=== PATIENT | female | born 1940 | race Caucasian/White ===

== ENCOUNTER 2019-11-12 09:55 | Emergency (ER) | payer MEDICARE, SELFPAY ==
[2019-11-12 09:57] VITALS: BP 157/76; PULSE 86; RESP 22; TEMP 37; O2SAT 95; BMI 42.3
[2019-11-12 10:00] VITALS: BP 148/76; PULSE 86; RESP 20; TEMP 37; O2SAT 96
--- NOTE | 2019-11-12 10:10 | EKG12_ITS ---
Test Reason : Blood Pressure : / mmHG Vent. Rate : 084 BPM Atrial Rate : 084 BPM P-R Int : 132 ms QRS Dur : 088 ms QT Int : 418 ms P-R-T Axes : 017 -45 043 degrees QTc Int : 493 ms Sinus rhythm with Premature atrial complexes Left anterior fascicular block Prolonged QT Abnormal ECG Confirmed by AUGUSTO PUENTE, ZOHRA ([id number]), content editor ERIC SPANN ([id number]) on 11/14/2019 11:00:25 AM Referred By: DEYANIRA Confirmed By:ZOHRA CASAS MD
--- NOTE | 2019-11-12 10:11 | ED.VIS.GEN ---
History of Present Illness Chief Complaint: GI Bleed Informant: Patient Onset: Days Current Severity: Mild Maximum Severity: Moderate Narrative: Presents via EMS secondary to rectal bleeding. Patient had a colectomy with colostomy placement on November [address] Latif at [facility] secondary to colon cancer. She states she came home 6 days ago. She had some mild bleeding then. She is noted increased bleeding which she assumes is rectal. She states she wears a pad because she has urinary incontinence. She has noted blood to the back portion of the pad. She does report some mild abdominal discomfort. No fever or chills. She had normal colostomy output. Today she felt lightheaded but she describes this as being more consistent with her vertigo. - Past Medical History (1) Vertigo Status: Chronic (2) High cholesterol Status: Chronic (3) Hypertension Status: Chronic (4) Diabetes Status: Chronic Past Medical History Primary Care Physician: Jose Luis Waldrop, CENTER MEDICAL DIRECTOR-C [Primary Care Provider] - Smoking Status: Never smoker Review of Systems General: Denies: Chills, Fever Eyes: Denies: Visual changes - bilaterally ENT: Denies: Bilateral ear pain Cardiovascular: Denies: Chest pain Respiratory: Denies: Dyspnea, Cough Gastrointestinal: Reports: Abdominal pain. Denies: Nausea, Vomiting, Diarrhea Genitourinary: Denies: Dysuria Musculoskeletal: Denies: Extremity Pain Skin: Denies: Rash Neurological: Denies: Headache Hematologic: Denies: Easy bruising, Easy bleeding Allergy: Denies: Uticaria Physical Exam Vital Signs/Narrative: Vital Signs Temp Pulse Resp BP Pulse Ox 11/12/19 10:00 98.6 F 86 20 H 148/76 H 96 11/12/19 09:57 98.6 F 86 22 H 157/76 H 95 Inital Vital Signs reviewed: Yes General: Well nourished, Well developed Head: Normocephalic ENT: Moist mucous membranes Neck: Supple Cardiovascular: Regular rate, Regular rhythm Respiratory: No distress, CTA bilaterally Abdomen: Soft, Nontender, - - Surgical sites healing. No sign of secondary infection. Good output in colostomy bag. Rectal: - - Rectal exam reveals bright red blood on gloved finger. Extremities: Nontender Skin: Normal color Neurological: Alert, Oriented x3 Psychological: Normal affect Diagnostic/Tx/Re-eval Impressions Abdomen/Pelvis CT 11/12/19 10:43 IMPRESSION: In the anorectal operative bed, complex fluid collection may merely represent postsurgical changes such as seroma/hematoma. Developing infectious process cannot be entirely excluded. Appropriate postsurgical appearance of the left lower quadrant colostomy assuming that the surgery was relatively recent. Minimal bilateral pleural effusions. Electronically Signed: Jose Luis Basilio MD at 13:16 EDT Tel , Service support , 11/12/19 10:43 Abdomen/Pelvis WITH Contrast [CT] Stat Laboratory Results 11/12/19 11/12/19 11/12/19 09:35 09:35 09:35 WBC 11.3 H RBC 3.36 L Hgb 9.9 L Hct 31.6 L MCV 94.0 MCH 29.5 MCHC 31.3 L RDW Std Deviation 48.5 H RDW Coeff of Halima 14.4 Plt Count 234 MPV 10.3 Immature Gran % (Auto) 2.100 H Neut % (Auto) 81.1 H Lymph % (Auto) 7.8 L Smith % (Auto) 7.4 Eos % (Auto) 1.2 Baso % (Auto) 0.4 Absolute Neuts (auto) 9.2 H Absolute Lymphs (auto) 0.88 Nucleated RBC % 0 PT 14.5 INR 1.2 APTT 29.2 Sodium 140 Potassium 3.3 L Chloride 101 Carbon Dioxide 31.0 Anion Gap 8 BUN 12 Creatinine 0.54 L Estim Creat Clear Calc 38.97 Est GFR (MDRD) Af Amer 140 Est GFR (MDRD) Non-Af 116 BUN/Creatinine Ratio 22.1 H Glucose 104 Calcium 8.6 - EKG Initial EKG Interpretation: Sinus Rhythm - Sinus at [address] with [address]s. No acute ST change. - Medical Decision Making Patient was given Zofran for nausea while here. Test results are discussed with patient and family at bedside. I spoke with , on-call for Dr. Latif. He was able to look at patient's previous labs and her hemoglobin was 9.9 at time of discharge. At this time he is comfortable with the patient following up in the office tomorrow as scheduled. I will have a copy of her CT made and print out a copy of labs for family to take along. ED Disposition - Plan for ED Patient: Disposition: Home or Assisted Living Diagnosis: Post-op bleeding Instructions: ED Wound Check Post Op Bleeding Additional Instructions: Follow-up with Dr Latif tomorrow as scheduled.
[2019-11-12] MEDS: 0.9% Normal Saline 1,000 ML 150 ML IV (10:15)
[2019-11-12 10:17] LABS: Absolute Lymphocyte Count 0.88 X10^3/uL (0.83-4.51); Absolute Neutrophil Count 9.2 X10^3/uL (2.0-7.7); Basophil# 0.04 X10^3/uL; Basophil% 0.4 % (0-1); Eosinophil# 0.14 X10^3/uL; Eosinophils% 1.2 % (0-5); Hematocrit 31.6 % (37-47); Hemoglobin 9.9 g/dL (12.0-15.0); Lymphocyte # 0.88 X10^3/ul (4.0); Lymphocyte % 7.8 % (19-41); Mean Corp Hgb Conc 31.3 g/dL (32-36); Mean Corpuscular Hgb 29.5 pg (27.0-32.0); Mean Platelet Vol. 10.3 fl (6.2-12.0); Monocyte# 0.83 X10^3/uL; Monocyte% 7.4 % (0-10); NRBC Flagged by Analyzer 0 % (0-5); Neutrophil # 9.16 X10^3/uL (2.7-7.7); Neutrophil % 81.1 % (47-70); Platelet Count 234 K/mm3 (150-450); RBC Distribution Width CV 14.4 % (11.6-14.6); RBC Distribution Width SD 48.5 fl (35.1-43.9); Red Blood Count 3.36 M/mm3 (4.2-5.4); White Blood Count 11.3 K/mm3 (4.4-11.0)
[2019-11-12 10:22] LABS: International Normalized Ratio 1.2; Partial Thromboplast Time 29.2 Seconds (24.1-36.2); Prothrombin Time (Protime)PT. 14.5 SECONDS (11.7-14.9)
[2019-11-12 10:27] LABS: Anion Gap 8 (5-15); BUN 12 mg/dL (7-18); BUN/Creat Ratio 22.1 RATIO (10-20); Calcium,Total 8.6 mg/dL (8.5-10.1); Chloride 101 mmol/L (98-107); Creatinine, Serum 0.54 mg/dL (0.55-1.02); EST Glomerular Filtration Rate 116 mL/min (>60); Est Glom Filt Rate - Afr Amer 140 mL/min (>60); Estimated Creatinine Clearance 38.97 ml/min; Glucose 104 mg/dL (74-106); Potassium 3.3 mmol/L (3.5-5.1); Sodium Level 140 mmol/L (136-145)
--- NOTE | 2019-11-12 10:43 | CT_ITS ---
STUDY: CT ABDOMEN AND PELVIS WITH CONTRAST REASON FOR EXAM: Female, 79 years old. Abdominal pain, GI bleed, recent colectomy/colostomy, colon cancer, rectal bleed RADIATION DOSAGE (If Supplied By Facility): CTDIvol = ( 15.07 ) mGy, DLP = ( 1106.00 ) mGycm. Individualized dose optimization techniques were used for this CT.? TECHNIQUE: Thin slice transaxial CT abdomen and pelvis IV contrast Isovue-370, 100 mL, sagittal and coronal 2-D MPR. COMPARISON: None. FINDINGS: Body wall soft tissues: Left lower quadrant colostomy. There is mild induration in the fat surrounding the colostomy, minimal fluid within the colostomy defect. This would be concordant with recent creation of the colostomy, postsurgical changes. There are no rim-enhancing abscess-like fluid collections. Osseous structures: No acute process. Inferior chest: Minimal bilateral pleural effusions with mild bibasilar atelectasis, lung bases otherwise clear, normal distal esophagus, minimal sliding hiatal hernia, Mild cardiomegaly. Hepatobiliary: No suspicious lesions, normal gallbladder and biliary tree. Pancreas: Mild atrophy. Spleen: Normal. Adrenal glands: Normal. Urogenital: Normal kidneys, collecting systems, ureters, urinary bladder. Some fluid in the vaginal vault, with a few tiny gas bubbles.. Uterus absent. No adnexal mass or suspicious cyst. Pelvic floor and sidewalls and retroperitoneum: No mass or lymphadenopathy. Vasculature: Normal. Stomach: Normal. Small bowel and mesentery: Normal. Appendix: Normal. Large bowel: Large bowel to the colostomy exhibits no acute abnormality. There appears to be resection of the anorectum, and sigmoid colon. In the operative bed there is a small fluid collection presacral, containing a few gas bubbles, the fluid collection measuring approximately 7 cm craniocaudal, 2.8 cm in maximum diameter. Depending on how recent the surgery was, this may merely reflect a postoperative seroma/hematoma. Developing infectious process cannot be entirely excluded. Ascites or free air: None. CT/Abdomen/Pelvis WITH Contrast IMPRESSION: In the anorectal operative bed, complex fluid collection may merely represent postsurgical changes such as seroma/hematoma. Developing infectious process cannot be entirely excluded. Appropriate postsurgical appearance of the left lower quadrant colostomy assuming that the surgery was relatively recent. Minimal bilateral pleural effusions. Electronically Signed: Jose Luis Basilio MD at 13:16 EDT Tel , Service support ,
[2019-11-12 11:00] VITALS: BP 145/87; PULSE 84; RESP 20; TEMP 37; O2SAT 96
[2019-11-12] MEDS: Ondansetron 4 MG/2 ML Vial IV (11:45)
[2019-11-12 12:00] VITALS: BP 146/80; PULSE 83; RESP 19; TEMP 36.8; O2SAT 94
[2019-11-12 12:42] VITALS: PULSE 83; RESP 19; O2SAT 94
[2019-11-12 14:18] VITALS: BP 153/79; PULSE 85; RESP 20; O2SAT 95
== END 2019-11-12 14:33 | disposition home or self-care (01) ==
PROVIDERS: Emergency Provider Emergency Medicine; PCP Nurse Practitioner Family
DX: K62.5 Hemorrhage of anus and rectum (principal); R42 Dizziness and giddiness; R11.0 Nausea; Z90.49 Acquired absence of other specified parts of digestive tract; Z93.3 Colostomy status; I49.1 Atrial premature depolarization; I10 Essential (primary) hypertension; E11.9 Type 2 diabetes mellitus without complications; E78.00 Pure hypercholesterolemia, unspecified; Z85.038 Personal history of other malignant neoplasm of large intestine; Z79.84 Long term (current) use of oral hypoglycemic drugs; Z79.899 Other long term (current) drug therapy
CPT/HCPCS: 74177; 80048; 85025; 85610; 85730; 93005; 96361; 96374; 99285; Q9967; J2405

== ENCOUNTER 2019-12-31 15:40 | Emergency (ER) | payer MEDICARE, OTHER, SELFPAY ==
[2019-12-31 15:42] VITALS: BP 134/75; PULSE 99; RESP 16; TEMP 37; O2SAT 97; BMI 37.0
--- NOTE | 2019-12-31 16:05 | ED.DCSUM_ITS ---
- ER Visit Summary Date of Service: 12/31/19 Chief Complaint: Bleeding near abdominal incision History of Present Illness: The patient is a 79 F presenting with bleeding abdominal incision. Patient had colostomy placement and partial colectomy in October at [facility] for colon cancer. She states 2 to 3 weeks later the incision became infected. She was treated with oral antibiotics. She has been doing well since that time. She states yesterday she noticed what she thought was a bruise around the incision. Today this began bleeding. Denies fever or chills. Denies abdominal pain. She has normal output from her ostomy. Denies other complaints. Physical Examination: Vitals are stable. Patient is afebrile. Alert no acute distress. HEENT exam is unremarkable. Neck is supple. Lungs are clear and equal bilaterally. Heart is regular rate and rhythm. Abdomen is soft nontender nondistended. Colostomy intact. Open bleeding 1 cm wound superior aspect of incision inferior to umbilicus Extremities are unremarkable. Skin is warm and dry. No focal neurologic deficit. Remainder of exam is unremarkable. Emergency Department Course and Treatment: CBC shows white count 12.3, hemoglobin 10.3. Chemistries show glucose 110. CT abdomen pelvis shows irregular low-attenuation collection associated with the midline pelvic scar may represent seroma versus abscess as clinically indicated. On exam wound is open and draining. Wound was irrigated and dressed. She was given clindamycin. Wound culture was sent. Discussed with surgery on-call for Dr. Latif. Patient will follow-up closely in the office. Advised to return to the ED for worsening complaints. Disposition: Discharge home Impression: Postop abdominal wall abscess, draining This note was generated with [employer] dictation software. It may contain incorrect words, spelling, and punctuation that were not noted in review of the chart prior to signing ED Disposition - Plan for ED Patient: Instructions: ED Wound Infection after surgery Prescriptions: Clindamycin [Cleocin] 300 mg PO 4X/DAY #80 cap Prescription Printed Referrals: Jose Luis Waldrop, ABIOLA-C [Primary Care Provider] -
[2019-12-31 16:33] LABS: Absolute Lymphocyte Count 1.22 X10^3/uL (0.83-4.51); Absolute Neutrophil Count 9.5 X10^3/uL (2.0-7.7); Basophil# 0.04 X10^3/uL; Basophil% 0.3 % (0-1); Eosinophil# 0.22 X10^3/uL; Eosinophils% 1.8 % (0-5); Hematocrit 33.6 % (37-47); Hemoglobin 10.3 g/dL (12.0-15.0); Lymphocyte # 1.22 X10^3/ul (4.0); Lymphocyte % 9.9 % (19-41); Mean Corp Hgb Conc 30.7 g/dL (32-36); Mean Corpuscular Hgb 27.6 pg (27.0-32.0); Mean Corpuscular Volume 90.1 fL (81-99); Mean Platelet Vol. 9.9 fl (6.2-12.0); Monocyte# 1.26 X10^3/uL; Monocyte% 10.2 % (0-10); NRBC Flagged by Analyzer 0 % (0-5); Neutrophil # 9.52 X10^3/uL (2.7-7.7); Neutrophil % 77.4 % (47-70); Platelet Count 307 K/mm3 (150-450); RBC Distribution Width CV 14.6 % (11.6-14.6); Red Blood Count 3.73 M/mm3 (4.2-5.4); White Blood Count 12.3 K/mm3 (4.4-11.0)
--- NOTE | 2019-12-31 16:33 | CT_ITS ---
STUDY: CT ABDOMEN AND PELVIS WITH CONTRAST REASON FOR EXAM: Female, 79 years old. POST-OP INFECTION-COLON SURGERY ,PT HAS BLEEDING NEAR INCISION SITE RADIATION DOSAGE (If Supplied By Facility): CTDIvol = ( 12.56 ) mGy, DLP = ( 1174.77 ) mGycm TECHNIQUE: Transaxial images were obtained from the dome of the diaphragm to the symphysis pubis without oral contrast. Oral and amp; IV Gastrografin and amp; 100mL Isovue-370 was administered. Sagittal and coronal images were reconstructed. Individualized dose optimization techniques were used for this CT. COMPARISON: None. FINDINGS: The visualized lung bases are unremarkable. The visualized portions of the heart are within normal limits. Normal liver. Normal gallbladder and extrahepatic biliary system. Normal spleen. There are pancreatic calcifications in the distribution of the ducts consistent with chronic pancreatitis. Normal bilateral adrenal glands. Normal right kidney. Normal left kidney. There is left anterior abdominal wall colostomy. At the lower pelvis there is a low-attenuation focus associated with the scar measuring 3.8 x 3.6 cm. Normal visualized stomach. Normal small intestine. There are multiple colonic diverticula consistent with diverticulosis. The appendix is visualized and appears normal. Normal abdominal aorta. Normal inferior vena cava. Normal retroperitoneum. Normal urinary bladder. There is absence of the uterus consistent with a prior hysterectomy. Normal abdominal wall. Normal osseous structures. CT/Abdomen/Pelvis WITH Contrast IMPRESSION: Irregular low-attenuation collection associated with the midline pelvic scar may represent seroma versus abscess as clinically indicated. Electronically Signed: Wes Stevenson, at 19:07 EDT Tel , Service support ,
[2019-12-31 16:47] LABS: Anion Gap 4 (5-15); BUN 18 mg/dL (7-18); Calcium,Total 9.2 mg/dL (8.5-10.1); Chloride 105 mmol/L (98-107); Creatinine, Serum 0.82 mg/dL (0.55-1.02); EST Glomerular Filtration Rate 72 mL/min (>60); Est Glom Filt Rate - Afr Amer 87 mL/min (>60); Estimated Creatinine Clearance 47.53 ml/min; Glucose 110 mg/dL (74-106); Sodium Level 138 mmol/L (136-145)
[2019-12-31 17:41] VITALS: BP 102/74; PULSE 79; RESP 18; O2SAT 100
[2019-12-31 20:25] VITALS: BP 110/47; PULSE 78; RESP 15; O2SAT 97
--- NOTE | 2019-12-31 20:25 | ED.DEP ---
ED Disposition - Plan for ED Patient: Instructions: ED Wound Infection after surgery Prescriptions: Clindamycin [Cleocin] 300 mg PO 4X/DAY #80 cap Prescription Printed Referrals: Jose Luis Waldrop, SERVICE DESK TEAM LEAD-C [Primary Care Provider] -
[2019-12-31] MEDS: Clindamycin HCl 150 MG Capsule 450 MG PO (20:38)
== END 2019-12-31 20:52 | disposition home or self-care (01) ==
LOC: ED 16:57
PROVIDERS: Emergency Provider Emergency Medicine; PCP Nurse Practitioner Family
DX: T81.41XA Infection following a procedure, superficial incisional surgical site, initial encounter (principal); L02.211 Cutaneous abscess of abdominal wall; Z85.038 Personal history of other malignant neoplasm of large intestine; Z93.3 Colostomy status; I10 Essential (primary) hypertension; E11.9 Type 2 diabetes mellitus without complications; E78.00 Pure hypercholesterolemia, unspecified; Z90.49 Acquired absence of other specified parts of digestive tract; Z79.84 Long term (current) use of oral hypoglycemic drugs; Z79.899 Other long term (current) drug therapy
CPT/HCPCS: 74177; 80048; 85025; 87070; 87077; 87205; 99284; Q9967; A4216

== ENCOUNTER → 2020-02-05 08:42 | Outpatient (CLI) | payer MEDICARE, OTHER, SELFPAY ==
--- NOTE | 2020-02-05 08:44 | US_ITS ---
STUDY: ULTRASOUND OF THE FEMALE PELVIS - COMPLETE REASON FOR EXAM: Female, 79 years old. Vaginal mass LMP: The patient is postmenopausal. TECHNIQUE: Transabdominal and Transvaginal TECHNICAL QUALITY: Adequate. COMPARISON: None. FINDINGS: The patient is status post hysterectomy. The right ovary is non-visualized. The left ovary is non-visualized. There is no fluid in the cul-de-sac. The pre void volume of the bladder was 125 ml. Polycystic ovary disease: No. US/Transvaginal Non- IMPRESSION: Status post hysterectomy. The ovaries were not visualized. No masses seen. Electronically Signed: Tru Anaya, at 12:33 EDT , Service support ,
== END ==
PROVIDERS: PCP Student in an Organized Health Care Education/Training Program; Referring Provider Student in an Organized Health Care Education/Training Program; Visit Provider Student in an Organized Health Care Education/Training Program
DX: N89.8 Other specified noninflammatory disorders of vagina (principal)
CPT/HCPCS: 76830

== ENCOUNTER → 2020-02-09 14:11 | Outpatient (CLI) | payer MEDICARE, OTHER, SELFPAY ==
--- NOTE | 2020-02-09 14:18 | CT_ITS ---
STUDY: CT ABDOMEN AND PELVIS WITH CONTRAST REASON FOR EXAM: Female, 79 years old. COLON CANCER WITH COLECTOMY. PRIOR HYSTERECTOMY RADIATION DOSAGE (If Supplied By Facility): CTDIvol = ( 14.63 ) mGy, DLP = ( 1518.80 ) mGycm TECHNIQUE: Transaxial images were obtained from the dome of the diaphragm to the symphysis pubis without oral contrast. 100mL Isovue-370 was administered. Sagittal and coronal images were reconstructed. Individualized dose optimization techniques were used for this CT. COMPARISON: Comparison is made with prior study dated 12/31/2019. FINDINGS: Minimal increased markings at the lung bases suggestive of minimal atelectasis and/or minimal basilar scarring. The visualized portions of the heart are within normal limits. There is decreased attenuation of the liver consistent with steatosis. The gallbladder is distended. There is mild splenomegaly. Normal pancreas. Normal bilateral adrenal glands. Normal right kidney. Normal left kidney. There is a small hiatal hernia. Normal small intestine. A colostomy is seen in the left anterior mid abdomen just lateral to the umbilicus. Stable soft tissue density in the region of the rectum most likely postsurgical in nature. There is non-visualization of the appendix. There is scattered atherosclerotic calcification of the abdominal aorta, without a demonstrated aneurysm. Normal inferior vena cava. Normal retroperitoneum. Normal urinary bladder. There is absence of the uterus consistent with a prior hysterectomy. There is a small umbilical hernia containing fat. There are degenerative changes of the visualized lumbar spine. CT/Abdomen/Pelvis W IV Cont ONLY IMPRESSION: Stable examination. Electronically Signed: Tru Anaya, at 14:58 EDT , Service support ,
--- NOTE | 2020-02-09 14:19 | CT_ITS ---
STUDY: CT CHEST WITH CONTRAST REASON FOR EXAM: Female, 79 years old. Rectal cancer WITH COLECTOMY. RADIATION DOSAGE (If Supplied By Facility): CTDIvol = ( 14.63 ) mGy, DLP = ( 1518.80 ) mGycm TECHNIQUE: Transaxial imaging was performed following intravenous administration of 100mL Isovue-370. Multiplanar coronal and sagittal images were reformatted. Individualized dose optimization techniques were used for this CT. COMPARISON: None. FINDINGS: Minimal increasing markings at the lung bases suggestive of mild basilar scarring. There is no demonstrated pleural abnormality. Normal heart and pericardium. Normal mediastinum. Normal hilar regions. Normal enhanced pulmonary arteries. There is atherosclerotic calcification of the aortic arch. There are multi-level degenerative changes of the thoracic spine. Small hiatal hernia. CT/Chest WITH Contrast IMPRESSION: No acute abnormality is seen. Electronically Signed: Tru Anaya, at 14:59 EDT , Service support ,
== END ==
PROVIDERS: PCP Student in an Organized Health Care Education/Training Program; Referring Provider Student in an Organized Health Care Education/Training Program; Visit Provider Student in an Organized Health Care Education/Training Program
DX: C20 Malignant neoplasm of rectum (principal); C18.9 Malignant neoplasm of colon, unspecified
CPT/HCPCS: 71260; 74177; Q9967

== ENCOUNTER 2020-02-13 13:10 | Day surgery (SDC) | payer MEDICARE, OTHER, SELFPAY ==
--- NOTE | 2020-02-12 11:03 | PCM.HP.BLA ---
History and Physical Date of Admission: 02/13/20 HISTORY AND PHYSICAL ? [place] 1940 ? ? REFERRING PHYSICIAN: Juan Alberto Wetzel DO ? CHIEF COMPLAINT: No chief complaint on file. ? HPI: The patient is a 79 year old female presents with metastatic rectal cancer and requires portacath for continued IV chemotherapy. She denies previous placement of central line access. She denies history of clavicular/rib/vertebral fractures. She denies previous deep venous thromboses. She denies bleeding tendencies. She denies taking any blood thinners. She denies fevers. ? ? PAST MEDICAL HISTORY Diagnosis Date ? Gout ? ? Hypercholesterolemia ? ? Hypertension ? ? Noninsulin dependent diabetes mellitus ? ? Vertigo ? ? PAST SURGICAL HISTORY Procedure Laterality Date ? BREAST BIOPSY ? ? ? left ? COLONOSCOPY ? 09/29/2019 ? EXCISION OF LINGUAL TONSIL ? ? ? ingrown toenails ? 2 ? PAST SURGICAL HISTORY OF ? ? ? Melanoma removed from back ? PAST SURGICAL HISTORY OF ? 01/30/2020 ? Vaginal mass biopsy ? VAGINAL HYSTERECTOMY ? Current Outpatient Medications Medication Sig ? potassium chloride ER (K-DUR, KLOR-CON) 20 mEq tablet Take 1 tablet by mouth twice daily. ? ascorbic acid, vitamin C, (VITAMIN C) 500 mg tablet Take 500 mg by mouth two times a week. ? ferrous sulfate (IRON) 325 mg (65 mg iron) tablet Take 325 mg by mouth two times a week. ? lisinopril (ZESTRIL, PRINIVIL) 10 mg tablet Take 10 mg by mouth once daily. ? meclizine (ANTIVERT) 25 mg tab Take 25 mg by mouth three times daily as needed. ? rosuvastatin (CRESTOR) 5 mg tablet Take 5 mg by mouth once daily. ? oxybutynin (DITROPAN) 5 mg tablet Take 5 mg by mouth once daily. ? HYDROcodone-acetaminophen (NORCO) 5-325 mg per tablet Take 1 tablet by mouth every 6 hours as needed. ? alendronate (FOSAMAX) 70 mg tablet Take 70 mg by mouth one time a week. In AM with cup of water on empty stomach. Nothing else by mouth and stay upright for 30 min. ? ? ALLERGIES: Patient has no known allergies. ? PERSONAL HISTORY: Social History ? Tobacco Use ? Smoking status: Never Smoker ? Smokeless tobacco: Never Used Substance Use Topics ? Alcohol use: Yes ? ? Comment: rarely ? Drug use: Not on file ? FAMILY HISTORY Problem Relation Age of Onset ? Allergies Son ? ? Asthma Son ? ? Breast Cancer Sister ? ? Cervical Cancer Mother ? ? Diabetes Mother ? ? Hypertension Mother ? ? Osteoporosis Mother ? ? Coronary Artery Disease Father ? ? Heart Father ? ? Ischemic Heart Disease Father ? ? of heart attack in 50's ? Diabetes Sister ? ? Diabetes Sister ? ? Headache Sister ? ? Hypertension Sister ? ? Lipids Sister ? ? Stroke Sister ? ? ? REVIEW OF SYSTEMS: General - denies fevers, has had weight loss - was over 250# Cardiovascular - denies chest pain, denies history of VT Pulmonary - denies shortness of breath, denies coughing up blood Gastrointestinal - has colostomy in place Neurological - denies seizures, has some weakness of legs, denies chronic headaches Genitourinary - denies burning with urination, denies blood in urine Hematological - denies spontaneous/prolonged bleeding Skin - had wound infection of abdominal surgery Musculoskeletal - using walker to assist with ambulation, has bilateral knee arthritis Endocrine - denies diabetes, no thyroid problems Psychological ? denies hallucinations ? PHYSICAL EXAMINATION: General: The patient is 79 year old female, well nourished, well hydrated in no acute distress. The patient is oriented to time, place, and person. VITALS: Pulse 80, temperature 36.3 ?C (97.4 ?F), temperature source Temporal Artery, SpO2 96 %. Ht: 5'4 Wt: 215# Head ? Normocephalic. EOM intact with sclera clear and no icterus noted. Mouth with mucus membranes moist. Neck - supple with no jugular venous distention noted. Trachea is midline. Lungs ? clear to auscultation. Normal breath sounds. No rales/rhonchi/wheezing noted. No labored breathing noted, such as retractions. No cough heard. Heart ? normal S1 and S2 auscultated. No rubs/clicks/murmurs noted. Regular rate. Abdomen ? soft and benign. Normal bowel sounds. No abdominal bruits noted. Functioning colostomy in left side of abdomen. Extremities ? no calf tenderness noted. No pitting edema noted. Skin ? normal skin integrity. Neurological ? sitting in wheelchair, no focal deficits noted. Psych ? calm and appropriate ? ? IMPRESSION: metastatic rectal cancer, need for IV access for chemotherapy ? PLAN: I have discussed the above with the patient and her granddaughter who is here with her. I have offered placement of VAD with subcutaneous port. I have explained the procedure to the patient. I have counseled the patient as to the risks of the procedure, including but not limited to: infection, bleeding, injury to any blood vessels/nerves, scar tissue, injury to the lungs such as hemothorax and/or pneumothorax, thromboses of the blood vessels, non functioning of the port, line sepsis, wound infections, complications of anesthesia, etc. ? the patient understands. She prefers left sided placement of port. ? The patient was offered a surgery/procedure. The provider and patient have discussed in detail the risk of exposure to and/or potential harm posed by the COVID-19 virus with having a surgery/procedure at this time versus the risk of? delaying the surgery/procedure. It is not possible to know either the risk of delaying the surgery or procedure or chance of getting an infection with perfect accuracy, but a joint decision was made between the patient and the provider ?to proceed at this time with the scheduled surgery/procedure. ? The patient wishes to proceed. ?I have answered all questions to the patient?s satisfaction and the patient has no further questions. . Diagnoses: (Z45.2) Exhausted vascular access (primary encounter diagnosis) (C20) Malignant neoplasm of rectum (HCC) Return to Clinic: The patient is instructed to follow-up with me after the procedure as needed. ? Brittany Gaines MD
[2020-02-13 13:30] VITALS: BP 153/72; PULSE 67; RESP 16; TEMP 36.6; O2SAT 98; BMI 36.3
[2020-02-13] MEDS: Lactated Ringers 1,000 ML 75 ML IV (13:59)
[2020-02-13] MEDS: Cefazolin 2 GM in 0.9% Normal Saline 100 ML IV (15:37)
--- NOTE | 2020-02-13 15:54 | DCINST_ITS ---
Discharge Diet: No Restrictions Discharge Activity: Return to Normal Activity, May not drive while taking narcotic pain medications. Call your doctor if your incision/area has: Continuous Slow Oozing, Foul Smelling Discharge Call your doctor if you observe: Fever of 101 or Higher Allergies/Adverse Reactions: Allergies No Known Allergies Allergy (Verified 02/12/20 11:03) Medications to take at Discharge Alendronate Sodium [Fosamax] 70 mg PO FR 11/12/19 Allopurinol [Zyloprim] 200 mg PO DAILY 11/12/19 Lisinopril [Zestril] 20 mg PO DAILY 11/12/19 Meclizine HCl [Antivert] 12.5 mg PO BID PRN PRN 11/12/19 Rosuvastatin Calcium [Crestor] 5 mg PO DAILY 11/12/19 Ascorbic Acid [Vitamin C] 500 mg PO MOTH 02/12/20 Ferrous Gluconate [Iron] 65 mg PO MOTH 02/12/20 Hydrocodone Bitart/Apap 5-325 [[place] 5MG-325MG] 1 tab PO Q6H PRN PRN 02/12/20 Oxybutynin [Ditropan] 5 mg PO DAILY 02/12/20 Potassium Chloride [Klor-Con] 20 meq PO BID 02/12/20 Primary Care Physician: Steve Devries DO [Primary Care Provider] - Test Results: Test results from this visit will be discussed in further detail at your follow- up appointment, if applicable. Please Follow Up With: Brittany Gaines MD - call please call if any questions/concerns When: can follow up in oncology clinic, follow up with me prn
[2020-02-13 16:21] LABS: Bedside Glucose 100 mg/dL (70-110)
--- NOTE | 2020-02-13 16:48 | OP.PCM_ITS ---
Report of Operation Date of Procedure: 02/13/20 Pre-Operative Diagnosis: metastatic cancer, need for IV access for chemotherapy Post-Operative Diagnosis: same Surgery/Procedure Performed:: Placement of permanent indwelling tunneled catheter in left subclavian vein with subcutaneous port Description of Surgical Findings:: normal left subclavian vein anatomy to SVC Type of Anesthesia:: Local MAC Anesthesiologist: Lisbet Madrigal Specimen's removed: none Estimated Blood Loss (mL): < 10 ml Fluids Replaced: 800 ml RL Description of Procedure: After informed consent was given, the patient was brought to the Operating Room. Appropriate time out protocol was followed. The patient was then placed in the supine position. The patient was then given IV conscious sedation for anesthesia. The patient?s upper chest and neck were then prepped with a surgical skin preparation and sterile surgical drapes were placed. After proper landmarks were ascertained, the skin at the upper left chest area was then infiltrated with 1% xylocaine with epinephrine. A needle trocar was then inserted into the left subclavian vein and there was good aspiration of venous blood. A wire was then threaded into the needle trocar and this was visualized under fluoroscopy to ensure that the wire was in the left subclavian vein. Once this was done, then the needle trocar was removed. A small skin marquis was made with an 11 blade knife at the wire entrance site. The dilator with the introducer sheath attached was then placed over the wire into the left subclavian vein via the Seldinger technique and this was visualized under fluoroscopy. The dilator and sheath were in proper position as visualized by fl uoroscopy in real time. The wire and dilator were then removed. The catheter was then threaded into the introducer sheath and was positioned with its tip at the junction of the superior vena cava and the right atrium as visualized under fluoroscopy in real time. I personally reviewed all of the above fluoroscopic images and noted that the positions of the wire and catheter were correct so that the next step could be conducted. The catheter was flushed with a heparin saline mixture prior to placement. A subcutaneous pocket was then created caudad to the catheter insertion site. A transverse skin incision was made after the skin and subcutaneous tissues were infiltrated with local anesthetic. Blunt dissection was then used to create a space large enough for placement of the subcutaneous port. Hemostasis was carefully controlled with electrocautery. The port was sutured to the subcutaneous fascia using vicryl suture at three sites. The catheter was then tunneled into the subcutaneous pocket. The excess catheter was transected. The catheter was then attached to the subcutaneous port using research center director?s guidelines. The port was then placed in the subcutaneous pocket and the sutures were ligated. The subdermal incisional sites were reapproximated with interrupted vicryl suture. The skin was reapproximated with monocryl suture in a subcuticular fashion. Cavilon and carrington ristrips were used for reinforcement of the skin closure and a sterile opsite dressing was applied. Sponge, needle, and instrument count were verified and correct at the time of skin closure. The patient was brought to the Recovery Room in stable condition - Complications none noted - Admit VTE Documentation VTE Present on Admission: Yes VTE Mechan Device Prophylaxis: SCD's
[2020-02-13 16:56] VITALS: BP 119/67; BP 153/72; PULSE 75; RESP 16; TEMP 36.3; O2SAT 97
[2020-02-13 17:00] VITALS: BP 130/78; BP 153/72; PULSE 80; RESP 16; O2SAT 97
--- NOTE | 2020-02-13 17:00 | RAD_ITS ---
STUDY: X-RAY CHEST REASON FOR EXAM: Female, 79 years old. post op port insertion TECHNIQUE: Single AP portable view of the chest. COMPARISON: None. FINDINGS: Left subclavian chest port with tip of the catheter overlying the superior vena cava and no pneumothorax. The lungs are clear and expanded. Slightly elevated right hemidiaphragm. Normal size heart. Normal mediastinum and mani. Normal visualized pulmonary arteries. Normal visualized aortic arch and descending thoracic aorta. Normal visualized thoracic spine. Normal visualized ribs, clavicles, and shoulders. There is no demonstrated abnormality of the visualized soft tissue structures of the upper abdomen. RAD/CXR for Line Placement IMPRESSION: Left subclavian chest port with tip of the catheter overlying the superior vena cava and no pneumothorax. Electronically Signed: Jose Luis Casas MD at 17:31 EDT Tel , Service support ,
[2020-02-13 17:05] VITALS: BP 141/94; BP 153/72; PULSE 76; RESP 16; O2SAT 100
[2020-02-13 17:11] VITALS: BP 140/71; BP 153/72; PULSE 70; RESP 16; TEMP 36.7; O2SAT 99
[2020-02-13 17:45] VITALS: BP 148/63; BP 153/72; PULSE 81; RESP 16; TEMP 36.8; O2SAT 99
== END 2020-02-13 17:50 | disposition home or self-care (01) ==
LOC: SDC 13:11 → AC 13:11
PROVIDERS: PCP Student in an Organized Health Care Education/Training Program; Referring Provider Surgery; Visit Provider Surgery
PROC: (CPT 36561; principal; 2020-02-13 14:45)
DX: Z45.2 Encounter for adjustment and management of vascular access device (principal); C20 Malignant neoplasm of rectum; I10 Essential (primary) hypertension; M10.9 Gout, unspecified; E11.9 Type 2 diabetes mellitus without complications; E78.00 Pure hypercholesterolemia, unspecified; Z78.0 Asymptomatic menopausal state; Z85.820 Personal history of malignant melanoma of skin; Z85.038 Personal history of other malignant neoplasm of large intestine; Z79.899 Other long term (current) drug therapy
CPT/HCPCS: 00532; 36561; 71045; 77001; 82962; J7120; C1788

== ENCOUNTER 2020-03-22 11:02 | Inpatient (IN) | payer MEDICARE, OTHER, SELFPAY ==
[2020-03-22] VITALS (9 sets, daily range): BP systolic 112–132; BP diastolic 52–60; PULSE 73–85; RESP 16–22; TEMP 36.6–37.2; O2SAT 89–98; BMI 38.0; BMI 37.3
--- NOTE | 2020-03-22 11:53 | CT_ITS ---
STUDY: CT ABDOMEN AND PELVIS WITHOUT CONTRAST REASON FOR EXAM: Female, 79 years old. R/O BOWEL OBSTRUCTION, ABD PAIN RADIATION DOSAGE (If Supplied By Facility): CTDIvol = ( 12.53 ) mGy, DLP = ( 1006.33 ) mGycm TECHNIQUE: Transaxial images were obtained from the dome of the diaphragm to the symphysis pubis without oral contrast, and without intravenous contrast. Sagittal and coronal images were reconstructed. Individualized dose optimization techniques were used for this CT. COMPARISON: Comparison is made with prior study dated 02/09/2020. FINDINGS: There is a new small right pleural effusion with right basilar infiltrate as compared to prior study. Elevation of the right hemidiaphragm. A portacatheter is seen at the junction of the superior vena cava and right atrium. The visualized portions of the heart are within normal limits. Normal liver. Mildly distended gallbladder. There is moderate splenomegaly. Normal pancreas. Normal bilateral adrenal glands. Mild right hydronephrosis and proximal right hydroureter. Moderate degree of engorgement of the left kidney with the left perinephric stranding and thickening of the anterior pararenal space. Mild to moderate degree of the left hydronephrosis and left hydroureter. No visualized opaque stone is seen throughout the course of the ureter. Normal visualized stomach. There are dilated loops of the small intestine with a non-distended colon consistent with a small bowel obstruction. A colostomy is seen in the anterior left lower quadrant. Stable circumferential thickening of the rectum with increased markings in the surrounding pelvic fat as well as prominence of the presacral soft tissues. This is unchanged. There is non-visualization of the appendix. There is diffuse atherosclerotic calcification of the abdominal aorta, without a demonstrated aneurysm. Normal inferior vena cava. There is borderline retroperitoneal lymphadenopathy with enlarged nodes no greater than 10mm in the short axis diameter. Normal urinary bladder. There is absence of the uterus consistent with a prior hysterectomy. There is a small umbilical hernia containing fat. Normal osseous structures. CT/Abdomen/Pelvis without Cont IMPRESSION: Findings indicative of distal small bowel obstruction. The left kidney is engorged. There is evidence of perinephric stranding with mild to moderate degree of left hydronephrosis and hydroureter. No obstructive calculus is seen. Stable circumferential thickening of the rectum as well as increased presacral soft tissue densities. Electronically Signed: Tru Anaya, at 13:18 EST , Service support ,
--- NOTE | 2020-03-22 11:55 | ED.DCSUM_ITS ---
- ER Visit Summary Date of Service: 03/22/20 Chief Complaint: Abdominal pain History of Present Illness: The patient is a 79 F history of prior colon cancer with partial resection and stoma. Now has rectal and liver metastases. Prior hysterectomy. Patient states since Wednesday last 3 days she has had abdominal pain and today had nausea vomiting. She had limited output through her stoma. Denies any melena. No fever. No dysuria. Pain is diffuse over her entire abdomen. Physical Examination: Alert female vital signs stable. H EENT exam unremarkable. Neck nontender. Lungs clear to auscultation. Heart regular rate and rhythm no murmur. Abdomen is distended diffusely tender. There is limited brown stool output in her colostomy bag. Abdomen is tympanic with decreased bowel sounds. Patient is moving all 4 extremities. Nontender. Neurologically she is awake alert with no focal motor deficits. Test Results: CBC white count 11.2 hemoglobin 12. No bands. Chemistries unremarkable except for BUN 36 creatinine 2.2 consistent with renal insuff iciency and also probably some secondary dehydration. Liver enzymes slightly elevated lipase normal. UA pending. Chest x-ray shows atelectasis but no acute process. CAT scan of the abdomen pelvis shows a distal bowel obstruction. There is also a left engorged kidney with hydroureter and hydronephrosis without any signs of stone. And rectal thickening. CAT scan is consistent with her exam showing no bowel obstruction. Emergency Department Course and Treatment: Patient with abdominal pain and has had prior partial colon resection hysterectomy. History of colon CA with mets. Concern for bowel obstruction. IV fluids, IV nausea meds. She currently does not waiting for pain. CAT scan labs. She will need admitted. Treatment Plan: Morphine and Zofran. She is receiving IV fluids. I spoke to Dr. Brittany Gaines of general surgery she is willing to be consult on the patient. I have the hospitalist on page to admit the patient for small bowel obstruction. Disposition: Admission Impression: Acute abdominal pain Acute bowel obstruction Acute kidney injury with a creatinine of 2.2. History of colon CA with liver mets. This note was generated with [employer] dictation software. It may contain incorrect words, spelling, and punctuation that were not noted in review of the chart prior to signing ED Disposition - Plan for ED Patient: Referrals: Steve Devries DO [Primary Care Provider] -
[2020-03-22] MEDS: 0.9% Normal Saline 1,000 ML 125 ML IV ×2 (12:02→16:36)
[2020-03-22] MEDS: Ondansetron 4 MG/2 ML Vial IV (12:02)
[2020-03-22 12:15] LABS: Absolute Lymphocyte Count 0.29 X10^3/uL (0.83-4.51); Absolute Neutrophil Count 9.3 X10^3/uL (2.0-7.7); Basophil# 0.03 X10^3/uL; Basophil% 0.3 % (0-1); Eosinophil# 0.04 X10^3/uL; Eosinophils% 0.4 % (0-5); Hematocrit 38.2 % (37-47); Hemoglobin 12.4 g/dL (12.0-15.0); Lymphocyte # 0.29 X10^3/ul (4.0); Lymphocyte % 2.6 % (19-41); Mean Corp Hgb Conc 32.5 g/dL (32-36); Mean Corpuscular Hgb 28.1 pg (27.0-32.0); Mean Corpuscular Volume 86.4 fL (81-99); Mean Platelet Vol. 10.5 fl (6.2-12.0); Monocyte# 1.49 X10^3/uL; Monocyte% 13.3 % (0-10); NRBC Flagged by Analyzer 0 % (0-5); Neutrophil # 9.31 X10^3/uL (2.7-7.7); POSITIVE DIFFERENTIAL YES; Platelet Count 195 K/mm3 (150-450); RBC Distribution Width CV 15.2 % (11.6-14.6); RBC Distribution Width SD 47.9 fl (35.1-43.9); Red Blood Count 4.42 M/mm3 (4.2-5.4); White Blood Count 11.2 K/mm3 (4.4-11.0)
[2020-03-22 12:21] LABS: Differential Indicated SCAN CRITERIA MET
[2020-03-22 12:27] LABS: AST(SGOT) 6 U/L (15-37); Alanine Aminotransfer ALT/SGPT 10 U/L (13-56); Albumin, Serum 3.1 g/dL (3.2-5.0); Alkaline Phosphatase 71 U/L (45-117); Anion Gap 5 (5-15); BUN 36 mg/dL (7-18); BUN/Creat Ratio 16.4 RATIO (10-20); Bilirubin, Direct 0.76 mg/dL (0.00-0.30); Chloride 106 mmol/L (98-107); EST Glomerular Filtration Rate 23 mL/min (>60); Est Glom Filt Rate - Afr Amer 28 mL/min (>60); Estimated Creatinine Clearance 18.49 ml/min; Globulin 3.3 g/dL (2.2-4.2); Glucose 142 mg/dL (74-106); Lipase 39 U/L (73-393); Potassium 4.4 mmol/L (3.5-5.1); Protein, Total 6.4 g/dL (6.4-8.2); Sodium Level 141 mmol/L (136-145)
[2020-03-22] MEDS: Morphine 4 MG/ML Syringe IV ×3 (12:35→22:07)
--- NOTE | 2020-03-22 12:52 | RAD_ITS ---
STUDY: X-RAY CHEST REASON FOR EXAM: Female, 79 years old. ABD PAIN SINCE WEDS. PT HAS STOMA, RECENTLY BEGAN RADIATION FOR RECTAL, LIVER CANCER TECHNIQUE: Single AP portable view of the chest. COMPARISON: Comparison is made with prior study dated 02/13/2020. FINDINGS: A right-sided portacatheter is seen with the tip at the junction of the superior vena cava and right atrium. Elevation of the right hemidiaphragm with mild increased markings at the right lung base suggestive of atelectasis. There is blunting of the right costophrenic angle. Normal size heart. Normal mediastinum and mani. Normal visualized pulmonary arteries. There is atherosclerotic tortuosity of the aortic arch and descending thoracic aorta. There are degenerative changes of the visualized thoracic spine. Normal visualized ribs, clavicles, and shoulders. There is no demonstrated abnormality of the visualized soft tissue structures of the upper abdomen. RAD/Chest 1 View (Portable) IMPRESSION: Mild increased markings at the right lung base with blunting of the right costophrenic angle suggestive of atelectasis. Electronically Signed: Tru Anaya, at 13:11 EST , Service support ,
[2020-03-22 13:47] LABS: Platelet Estimate ADEQUATE (ADEQ); Red Cell Morphology NORM C+C NORMAL (NORM C&C)
--- NOTE | 2020-03-22 14:03 | HP.PCM_ITS ---
Problem List (1) SBO (small bowel obstruction) Status: Acute (2) Diabetes Status: Chronic Qualifiers: Diabetes mellitus type: type 2 Diabetes mellitus fpc insulin use: without terminal makeup operator use Diabetes mellitus complication status: without complication Qualified Code(s): E11.9 - Type 2 diabetes mellitus without complications (3) High cholesterol Status: Chronic (4) Hypertension Status: Chronic (5) Vertigo Status: Chronic (6) STORMY (acute kidney injury) Status: Acute (7) Hydronephrosis Status: Acute History of Present Illness Date of Admission: 03/22/20 Chief Complaint: Abdominal pain The patient is a 79 year old F with a history of colon cancer and some type of abdominal surgery with her colon cancer which she has a colostomy. Presents with a 2-day history of abdominal pain. Abdominal pain is steadily gotten worse. Not having any nausea or vomiting but has noted decreased output from her colostomy. Patient has been able to eat some but much diminished from previous. Patient has never had a bowel obstruction before. In the emergency room CAT scan confirmed a bowel obstruction but also noted that her left kidney was engorged with perinephric stranding. [] Past Medical History Past Medical History (Chronic Problems): Chronic Problems (Last Updated 03/22/20 @ 14:[address] Júnior Felder DO) Vertigo (Chronic) High cholesterol (Chronic) Hypertension (Chronic) Diabetes (Chronic) Medical History: Medical History (Last Updated 03/22/20 @ 14:[address] Júnior Felder DO) Colon cancer C18.9 Vertigo R42 Allergies No Known Allergies Allergy (Verified 03/22/20 11:49) Home Medications: Ambulatory Orders Medication Instructions Recorded Alendronate Sodium [Fosamax] 70 mg PO FR 11/12/19 Allopurinol [Zyloprim] 100 mg PO DAILY 11/12/19 Lisinopril [Zestril] 20 mg PO DAILY 11/12/19 Meclizine HCl [Antivert] 12.5 mg PO BID PRN PRN 11/12/19 Rosuvastatin Calcium [Crestor] 5 mg PO DAILY 11/12/19 Ascorbic Acid [Vitamin C] 500 mg PO MOTH 02/12/20 Ferrous Gluconate [Iron] 65 mg PO MOTH 02/12/20 Hydrocodone Bitart/Apap 5-325 1 tab PO Q6H PRN PRN 02/12/20 [[place] 5MG-325MG] Potassium Chloride [Klor-Con] 20 meq PO BID 02/12/20 Surgical History: - - abdominal surgery NOS for colon cancer Smoking Status: Never smoker - *Family History Sibling History Items: Cancer - 2 of her sisters had cancer. Review of Systems Constitutional: Denies: Anorexia, Night Sweats Eyes: Denies: Blurred vision, Double vision HEENT: Denies: Head Aches, Sinus Congestion, Sinus Drainage Cardiovascular: Denies: Chest Pain, Palpitations Respiratory: Denies: Cough, Shortness of breath at rest, Sputum production Gastrointestinal: Reports: Abdominal Pain. Denies: Nausea, Vomiting Comment: All review of systems were negative except as mentioned above in the history of present illness and the other review of systems. VTE Information - Inpt Only VTE Present on Admission: No VTE Mechan Device Prophylaxis: None VTE Pharm Prophylaxis ordered?: Yes - Physical Exam Vitals/I&O's: Vital Signs Temp Pulse Resp BP Pulse Ox 37.2 C 73 20 H 131/58 H 97 03/22/20 12:36 03/22/20 12:36 03/22/20 12:36 03/22/20 12:36 03/22/20 12:36 Oxygen Flow Rate (L/min) 2 Oxygen Delivery Method Nasal Cannula Weight: 100.6 kg Body Mass Index (BMI) 38.0 General: Alert, Cooperative, No apparent distress HEENT: Atraumatic, Normocephalic Oral: Moist Mucosa, No Gingival or Mucosal Lesions/ Ulcerations Neck: No Nodes, Thyroid Normal Size and Texture Lungs: Clear to auscultation, Normal air movement, No rhonchi, No wheeze, No rales Cardiovascular: Regular rate, Regular Rhythm, Normal S1, Normal S2, No murmurs Abdomen: Hypoactive Bowel Sounds, Distended - But slightly soft, not taut, Obese, Tender - Diffuse Extremities: No edema, No Calf Tenderness Skin: No rashes, No breakdown Musculoskeletal: No Tenderness to Palpation of Joints or Extremities, No Muscle Wasting Neurological: Sensory exam intact to light touch and pain, Coordination normal Psych/Mental Status: Normal Affect, Appropriate Laboratory Results 03/22/20 12:00: WBC 11.2 H, RBC 4.42, Hgb 12.4, Hct 38.2, MCV 86.4, MCH 28.1, MCHC 32.5, RDW Std Deviation 47.9 H, RDW Coeff of Halima 15.2 H, Plt Count 195, MPV 10.5, Immature Gran % (Auto) 0.400, Neut % (Auto) 83.0 H, Lymph % (Auto) 2.6 L, Fisher % (Auto) 13.3 H, Eos % (Auto) 0.4, Baso % (Auto) 0.3, Absolute Neuts (auto) 9.3 H, Absolute Lymphs (auto) 0.29 L, Nucleated RBC % 0, Differential Comment , Platelet Estimate ADEQUATE, RBC Morphology NORM C+C 03/22/20 12:00: Sodium 141, Potassium 4.4, Chloride 106, Carbon Dioxide 30.0, Anion Gap 5, BUN 36 H, Creatinine 2.20 H, Estim Creat Clear Calc 18.49, Est GFR (MDRD) Af Amer 28 L, Est GFR (MDRD) Non-Af 23 L, BUN/Creatinine Ratio 16.4, Glucose 142 H, Calcium 9.0, Total Bilirubin 1.70 H, Direct Bilirubin 0.76 H, AST 6 L, ALT 10 L, Alkaline Phosphatase 71, Total Protein 6.4, Albumin 3.1 L, Globulin 3.3, Lipase 39 L Clinical Impression(s) from Imaging Studies Abdomen/Pelvis CT 03/22/20 11:53 IMPRESSION: Findings indicative of distal small bowel obstruction. The left kidney is engorged. There is evidence of perinephric stranding with mild to moderate degree of left hydronephrosis and hydroureter. No obstructive calculus is seen. Stable circumferential thickening of the rectum as well as increased presacral soft tissue densities. Electronically Signed: Tru Anaya, at 13:18 EST , Service support , Chest X-Ray 03/22/20 12:52 IMPRESSION: Mild increased markings at the right lung base with blunting of the right costophrenic angle suggestive of atelectasis. Electronically Signed: Tru Anaya, at 13:11 EST , Service support , Current Medications Sodium Chloride () 1,000 mls @ 125 mls/hr IV .Q8H [facility] Last Admin: 03/22/20 12:02 Dose: 125 mls/hr Documented by: Sodium Chloride () 1,000 mls @ 999 mls/hr IV .Q1H1M ONE Stop: 03/22/20 14:35 Assessment/Plan All Active Problems (Last Updated 03/22/20 @ 14:[address] Júnior Felder, DO) SBO (small bowel obstruction) (Acute) STORMY (acute kidney injury) (Acute) Hydronephrosis (Acute) 1. Small bowel obstruction, partial: Plan is for conservative measures with n.p.o., IV fluids, pain medications and antiemetics. Dr. Haider was contacted through the emergency room and will be available on consultation. No immediate concerns for this being a surgical abdomen at this time. Explained the patient that likely course of action will be conservative measures and then once her bowel function starts to return to let her eat. If it does not may need to consider an NG tube if she does get worse. I also did mention the possibility of surgery if she fails to progress or she needs lysis of adhesion or if her bowel obstruction were to get worse. 2. Acute kidney injury: IV fluids. Monitor. 3. Hydronephrosis: Noted perinephric stranding on the left. We will check a urinalysis and urine culture. Check renal ultrasound. 4. Diabetes mellitus type 2: Sliding scale insulin 5. VTE prophylaxis moderate risk: Lovenox 6. Colon cancer: It is metastasized to her liver and elsewhere. Request records from [facility], where she has had her surgery before as well as Dr. Wetzel's office. It was brought up the patient about being transferred to [place] but she is not interested in that and is okay with seeing surgeons here, if surgery becomes necessary. 7. Advanced care planning: Discussed with the patient. Patient wished to be full CODE STATUS. Inpatient E&M: 60038 Init Hosp L3
[2020-03-22] MEDS: 0.9% Normal Saline 1,000 ML 999 ML IV (14:04)
--- NOTE | 2020-03-22 15:28 | US_ITS ---
STUDY: RENAL ULTRASOUND - COMPLETE REASON FOR EXAM: Female, 79 years old. STORMY HYDRO SEEN ON CT TECHNIQUE: Ultrasound evaluation of the kidneys was performed with real-time and static chino-scale imaging. COMPARISON: CT scan of the same day. FINDINGS: RIGHT KIDNEY: Normal location of the right kidney, which is normal in size. The right kidney measures 11.3 x 4.8 x 4.8 cm. There is a normal cortex of the right kidney. The renal cortex measures 1.5 cm. There is no right renal mass or cyst. There are no right renal calculi. There is mild hydronephrosis of the right kidney. DISTAL RIGHT URETER: There is non-visualization of the distal right ureter. There is no demonstrated right ureterovesical junction calculus. There is no demonstrated right ureteral jet. LEFT KIDNEY: Normal location of the left kidney, which is normal in size. The left kidney measures 13.1 x 4.1 x 7.0 cm. There is a normal cortex of the left kidney. The renal cortex measures 1.9 cm. There is no left renal mass or cyst. There are no left renal calculi. There is mild hydronephrosis of the left kidney. DISTAL LEFT URETER: There is non-visualization of the distal left ureter. There is no demonstrated left ureterovesical junction calculus. There is a visualized left ureteral jet. BLADDER: The distended urinary bladder has a volume of 530 ml. There is a normal wall thickness of the distended urinary bladder. There is no demonstrated mass within the urinary bladder. There are no demonstrated bladder calculi. US/Kidney and Bladder IMPRESSION: Bilateral mild hydronephrosis. Electronically Signed: Nikita Reynoso MD at 17:46 EST , Service support ,
[2020-03-22] MEDS: 0.9% Saline Lock 10 ML Syringe IV ×2 (16:38→22:08)
--- NOTE | 2020-03-22 16:40 | CON.PCM_ITS ---
- Consult Date of Consult: 03/22/20 - Reason for Consult HISTORY AND PHYSICAL ? Princess Hager 1940 ? ? CHIEF COMPLAINT: abdominal pain ? HISTORY OF PRESENT ILLNESS: The patient is a 79 year old female presents with metastatic rectal cancer and SBO. She states that she has had minimal output since Wednesday from her colostomy She notes increasing abdominal pain since Wednesday. She has had nausea and emesis. She denies fevers. She is status post complete proctectomy with end colostomy on 11/02/2019 at [facility]. She is noted to have metastatic disease to the vagina. She also has pelvic pain. Taking vicodin every 6 hours. She is presently undergo palliative radiation to the pelvis. She is also undergoing palliative chemotherapy. There is a possibility of carcinomatosis seen on recent PET/CT scan. PAST MEDICAL HISTORY metastatic rectal cancer Gout ? Hypercholesterolemia ? Hypertension ? Noninsulin dependent diabetes mellitus ? Vertigo obesity ? ? PAST SURGICAL HISTORY BREAST BIOPSY left? ? COLONOSCOPY 09/29/2019 EXCISION OF LINGUAL TONSIL ? ? ingrown toenails ? PAST SURGICAL HISTORY OF Melanoma removed from back PAST SURGICAL HISTORY OF 01/30/2020 Vaginal mass biopsy VAGINAL HYSTERECTOMY total proctectomy with end colostomy October 2019 Placement of VAD ? MEDICATIONS potassium chloride ER (K-DUR, KLOR-CON) 20 mEq tablet Take 1 tablet by mouth twice daily. ascorbic acid, vitamin C, (VITAMIN C) 500 mg tablet Take 500 mg by mouth two times a week. ferrous sulfate (IRON) 325 mg (65 mg iron) tablet Take 325 mg by mouth two times a week. lisinopril (ZESTRIL, PRINIVIL) 10 mg tablet Take 10 mg by mouth once daily. meclizine (ANTIVERT) 25 mg tab Take 25 mg by mouth three times daily as needed. rosuvastatin (CRESTOR) 5 mg tablet Take 5 mg by mouth once daily. oxybutynin (DITROPAN) 5 mg tablet Take 5 mg by mouth once daily. HYDROcodone-acetaminophen (NORCO) 5-325 mg per tablet Take 1 tablet by mouth every 6 hours as needed. alendronate (FOSAMAX) 70 mg tablet Take 70 mg by mouth one time a week. In AM with cup of water on empty stomach. Nothing else by mouth and stay upright for 30 min. ?? ALLERGIES: Patient has no known allergies. ? PERSONAL HISTORY: Tobacco Use ? Smoking status: Never Smoker ? Smokeless tobacco: Never Used Substance Use Topics ? Alcohol use: Yes ? ? Comment: rarely ? Drug use: Not on file FAMILY HISTORY ? Allergies Son ? ? Asthma Son ? ? Breast Cancer Sister ? ? Cervical Cancer Mother ? ? Diabetes Mother ? ? Hypertension Mother ? ? Osteoporosis Mother ? ? Coronary Artery Disease Father ? ? Heart Father ? ? Ischemic Heart Disease Father ? ? of heart attack in 50's ? Diabetes Sister ? ? Diabetes Sister ? ? Headache Sister ? ? Hypertension Sister ? ? Lipids Sister ? ? Stroke Sister ? ?? REVIEW OF SYSTEMS: General - denies fevers, has had weight loss - was over 250#, needs help with ADLs Cardiovascular - denies chest pain, denies history of AR Pulmonary - denies shortness of breath, denies coughing up blood Gastrointestinal - see HPI, has colostomy in place Neurological - denies seizures, has some weakness of legs, denies chronic headaches Genitourinary - has had urinary incontinence for years, has chronic pelvic pain, denies blood in urine Hematological - denies spontaneous/prolonged bleeding Skin - had wound infection of abdominal surgery Musculoskeletal - using walker to assist with ambulation, has bilateral knee arthritis Endocrine - denies diabetes, no thyroid problems Psychological ? no major mood changes, denies hallucinations ? PHYSICAL EXAMINATION: General: The patient is 79 year old female, well nourished, well hydrated in no acute distress. The patient is oriented to time, place, and person. VITALS: Pulse 80, temperature 36.3 ?C (97.4 ?F), temperature source Temporal Artery, SpO2 96 %. Ht: 5'4 Wt: 215# Head ? Normocephalic. EOM intact with sclera clear and no icterus noted. Mouth with mucus membranes moist. Neck - supple with no jugular venous distention noted. Trachea is midline. Lungs ? clear to auscultation. Normal breath sounds. No rales/rhonchi/wheezing noted. No labored breathing noted, such as retractions. No cough heard. Heart ? normal heart sounds. No rubs/clicks/murmurs noted. Regular rate. Abdomen ? distended and tympanitic, hypoactive bowel sounds, colostomy in left side of abdomen - no output Extremities ? no pitting edema noted. Skin ? normal skin integrity. Neurological ? no focal deficits noted. Psych ? calm and appropriate ?? IMPRESSION: SBO, metastatic rectal cancer - s/p proctectomy/colostomy, undergoing radiation to pelvis ? DISCUSSION/PLAN: I have discussed the above with the patient. I recommend placement of NG tube for bowel decompression. Also repeat CT scan with oral contrast (gastrograffin) to delineate site of obstruction and also hopefully to relieve bowel obstruction Given patient's history of surgery and also radiation to pelvis and metastatic disease (there is a possibility of carcinomatosis seen on PET/CT scan), she would be a poor surgical candidate. I would recommend continued NG tube decompression and IV hydration - if obstruction doesn't resolve, I would consider NICKY, also Will follow patient with you Thank you for this consultation of this pleasant patient.
[2020-03-22 16:46] LABS: Bedside Glucose 112 mg/dL (70-110)
--- NOTE | 2020-03-22 16:46 | CT_ITS ---
ACR Level 3 findings have been noted. An addendum which confirms receipt of the report will follow. HISTORY: BOWEL OBSTRUCTION EXAMINATION: CT Abdomen And Pelvis W/O Contrast Injection TECHNIQUE: Helically acquired images were obtained of the abdomen and pelvis without oral or IV contrast as per renal stone protocol. A radiation dose optimization technique was used for this scan. IV Contrast dosage and agent: None. Oral contrast: Oral Gastrografin JEFRY March 22, 2020 at 12:49 PM RISON: None FINDINGS: LOWER CHEST: Small bilateral pleural effusions slightly increased when compared to prior study right greater than left. Left basilar atelectasis and a consolidative infiltrate in the right lower lobe. The heart is not enlarged. There is a central venous catheter with the tip at the cavoatrial junction. No pericardial effusion. LIVER: Homogeneous. No focal mass. GALLBLADDER AND BILIARY TREE: Distended gallbladder. No stones. This is more prominent than on the prior study No intra- or extrahepatic biliary ductal dilation. PANCREAS: No focal cystic or solid mass. SPLEEN: Splenomegaly that was seen on the prior study ADRENAL GLANDS: No nodules. KIDNEYS AND URETERS: There is mild right-sided hydronephrosis that is increased when compared to prior study. The right ureter is distended to the distal pelvis. No stones are seen within the ureter. There are vascular calcifications noted near the ureter There is moderate left-sided hydronephrosis with perinephric stranding as well as perinephric fluid extending to the anterior pararenal space also. This was seen on the prior study. The left ureter is dilated to the level of the distal pelvis but no stones are seen within the ureter PERITONEUM: No ascites or free air. No other fluid collection. There is presacral edema noted that was present on the prior study mild congestive changes of the mesentery BOWEL: No evidence of acute appendicitis. There is an NG tube seen within the stomach. Contrast and gas seen within the stomach. No wall thickening. There is dilatation of the small bowel proximally that was seen on the prior study. The distal small bowel is decompressed. These findings are compatible with a small bowel obstruction that was seen on the prior study. Bowel loops dilated up to 3.8 cm. There is a left lower quadrant colostomy. Diverticuli are seen within the colon within the ostomy. This is similar to prior study. Circumferential thickening is again noted at the rectum similar to prior study. Diverticulosis without evidence of diverticulitis LYMPH NODES: Shotty subcentimeter mesenteric lymph nodes are again noted VESSELS: Aorta is non-dilated. Scattered calcified plaque URINARY BLADDER: Distended. No wall thickening REPRODUCTIVE ORGANS: The uterus is not visualized ABDOMINAL WALL: Fat-containing ventral hernia that was present on the prior study. BONES: Bone island is seen within the right ilium and the left ilium similar to prior study. No acute osseous abnormality CT/Abdomen/Pel W ORAL Cont Only IMPRESSION: Findings compatible with a small bowel obstruction. The small bowel appears slightly more dilated than on the prior study. Bilateral hydronephrosis greater on the left with perinephric stranding and moderate left-sided hydronephrosis. There is bilateral hydroureter extending to the pelvis but not to the level of the bladder Anterior pararenal fluid and fat stranding is seen on the left similar to prior study Left lower quadrant colostomy Diverticulosis without evidence of diverticulitis Circumferential thickening of the rectum and presacral edema similar to prior study with presacral soft tissue density is again noted Increased bilateral pleural effusions right greater than left with right basilar consolidation NG tube in the stomach Central venous catheter tip at the cavoatrial junction. Distended gallbladder increased when compared to prior study but no stones or wall thickening Stable splenomegaly Individualized dose optimization techniques were used for this CT. at 2223 Reported and signed by: Kelly Quintanilla DO Electronically Signed: Kelly Quintanilla DO at 22:22 EST Tel , Service support ,
--- NOTE | 2020-03-22 18:18 | NURSING ---
NG placed in Rt Nares at this time. KUB ordered. Radiology is aware and are on their way up.
--- NOTE | 2020-03-22 18:24 | RAD_ITS ---
STUDY: X-RAY - ABDOMEN/PELVIS REASON FOR EXAM: Female, 79 years old. NG TUBE PLACEMENT TECHNIQUE: Frontal view of the abdomen COMPARISON: 22 March 2020 earlier same day FINDINGS: Gastric drainage tube is present with its tip in the antrum. There is a dilated loop of bowel in the upper abdomen, refer to previous examination. Examination is otherwise limited. RAD/Abdomen Single View (Portable) IMPRESSION: Gastric tube with tip in the fundus. Electronically Signed: Vasquez Irizarry, at 19:07 EST Tel , Service support ,
[2020-03-22] MEDS: Heparin Injection (Vial) 5,000 UNIT/ML VIAL 5000 UNIT SC (22:08)
[2020-03-22 22:45] LABS: Bedside Glucose 119 mg/dL (70-110)
[2020-03-23] MEDS: 0.9% Normal Saline 1,000 ML 125 ML IV (01:22)
[2020-03-23 02:50] VITALS: BP 121/54; PULSE 80; RESP 18; TEMP 36.7; O2SAT 95
[2020-03-23] MEDS: Morphine 4 MG/ML Syringe IV ×4 (05:30→20:38)
[2020-03-23 05:37] LABS: Absolute Neutrophil Count 6.4 X10^3/uL (2.0-7.7); Basophil# 0.03 X10^3/uL; Basophil% 0.4 % (0-1); Eosinophil# 0.09 X10^3/uL; Eosinophils% 1.1 % (0-5); Hematocrit 33.1 % (37-47); Hemoglobin 10.4 g/dL (12.0-15.0); Lymphocyte % 3.7 % (19-41); Mean Corp Hgb Conc 31.4 g/dL (32-36); Mean Platelet Vol. 10.3 fl (6.2-12.0); Monocyte# 1.22 X10^3/uL; Monocyte% 15.2 % (0-10); NRBC Flagged by Analyzer 0 % (0-5); Neutrophil # 6.35 X10^3/uL (2.7-7.7); Neutrophil % 79.1 % (47-70); POSITIVE DIFFERENTIAL YES; Platelet Count 160 K/mm3 (150-450); RBC Distribution Width CV 15.7 % (11.6-14.6); RBC Distribution Width SD 50.9 fl (35.1-43.9); Red Blood Count 3.72 M/mm3 (4.2-5.4)
[2020-03-23 05:41] LABS: Differential Indicated SCAN CRITERIA MET
[2020-03-23 05:48] LABS: Bacteria 0 SEEN /hpf (None Seen); Mucous, Urine 0 SEEN /hpf (<or=2+); Red Blood Cells-Urine 0 SEEN /hpf (0-5)
[2020-03-23 05:50] LABS: Color, Urine Yellow (Yellow); Glucose, Dipstick Normal (Normal); Ketone-Dipstick 5 mg/dl (Negative); Leukocyte Esterase-Dipstick 500 /ul (Negative); Nitrite-Dipstick Negative (Negative); Occult Blood-Urine 50 /ul (Negative); Protein-Dipstick 30 mg/dl (Negative); Specific Gravity, Urine 1.015 (1.002-1.030); Urine Bilirubin Dipstick Negative (Negative); Urine Clarity Sl. Cloudy (Clear); Urine Urobilinogen Normal (Normal)
[2020-03-23 05:58] LABS: Differential Comment SCANNED
[2020-03-23 06:02] LABS: ALB/GLOB Ratio 0.8 RATIO (0.9-2.4); AST(SGOT) 6 U/L (15-37); Alanine Aminotransfer ALT/SGPT 9 U/L (13-56); Albumin, Serum 2.6 g/dL (3.2-5.0); Alkaline Phosphatase 61 U/L (45-117); Anion Gap 4 (5-15); BUN 40 mg/dL (7-18); BUN/Creat Ratio 17.3 RATIO (10-20); Calcium,Total 7.9 mg/dL (8.5-10.1); Chloride 107 mmol/L (98-107); Creatinine, Serum 2.31 mg/dL (0.55-1.02); EST Glomerular Filtration Rate 22 mL/min (>60); Est Glom Filt Rate - Afr Amer 26 mL/min (>60); Estimated Creatinine Clearance 17.61 ml/min; Globulin 3.1 g/dL (2.2-4.2); Glucose 97 mg/dL (74-106); Potassium 4.7 mmol/L (3.5-5.1); Protein, Total 5.7 g/dL (6.4-8.2); Sodium Level 139 mmol/L (136-145)
[2020-03-23 06:04] LABS: Squamous Epithelial Cells - UA 10-25 SEEN /hpf (5-10); White Blood Cells 10-25 SEEN /hpf (0-5)
[2020-03-23 07:10] LABS: Bedside Glucose 105 mg/dL (70-110)
[2020-03-23] MEDS: 0.9% Normal Saline 1,000 ML 999 ML IV (07:55)
[2020-03-23 07:59] VITALS: BP 96/48; PULSE 79; RESP 18; TEMP 37; O2SAT 92
[2020-03-23] MEDS: Heparin Injection (Vial) 5,000 UNIT/ML VIAL 5000 UNIT SC ×2 (08:02→21:56)
--- NOTE | 2020-03-23 08:10 | PCM.PN.SRG ---
Patient Problems: Active and Suspected Problems (Last Updated 03/22/20 @ 14:[address] Júnior Felder, DO) SBO (small bowel obstruction) (Acute) STORMY (acute kidney injury) (Acute) Hydronephrosis (Acute) Subjective: patient feels hungry, no activity in stoma site, patient does feel peristalsis - Physical Exam Vitals/I&O's: Vital Signs Temp Pulse Resp BP Pulse Ox 98.6 F 79 18 96/48 L 92 03/23/20 07:59 03/23/20 07:59 03/23/20 07:59 03/23/20 07:59 03/23/20 07:59 Oxygen Flow Rate (L/min) 2 Oxygen Delivery Method Nasal Cannula Weight: 98.7 kg Body Mass Index (BMI) 37.3 Intake and Output for Last 24 Hours 03/21/20 03/22/20 03/23/20 23:59 23:59 23:59 Intake Total 1760.00 / 2700.00 2974.58 / 2974.58 Output Total 50 / 800 1300 / 1300 Balance 1710.00 / 1900.00 1674.58 / 1674.58 General: Alert, Oriented x3 HEENT: Atraumatic Oral: Moist Mucosa Neck: Supple Lungs: Normal air movement Abdomen: Soft, Hypoactive Bowel Sounds Laboratory Results 03/22/20 12:00: WBC 11.2 H, RBC 4.42, Hgb 12.4, Hct 38.2, MCV 86.4, MCH 28.1, MCHC 32.5, RDW Std Deviation 47.9 H, RDW Coeff of Halima 15.2 H, Plt Count 195, MPV 10.5, Immature Gran % (Auto) 0.400, Neut % (Auto) 83.0 H, Lymph % (Auto) 2.6 L, Bell % (Auto) 13.3 H, Eos % (Auto) 0.4, Baso % (Auto) 0.3, Absolute Neuts (auto) 9.3 H, Absolute Lymphs (auto) 0.29 L, Nucleated RBC % 0, Differential Comment , Platelet Estimate ADEQUATE, RBC Morphology NORM C+C 03/22/20 12:00: Sodium 141, Potassium 4.4, Chloride 106, Carbon Dioxide 30.0, Anion Gap 5, BUN 36 H, Creatinine 2.20 H, Estim Creat Clear Calc 18.49, Est GFR (MDRD) Af Amer 28 L, Est GFR (MDRD) Non-Af 23 L, BUN/Creatinine Ratio 16.4, Glucose 142 H, Calcium 9.0, Total Bilirubin 1.70 H, Direct Bilirubin 0.76 H, AST 6 L, ALT 10 L, Alkaline Phosphatase 71, Total Protein 6.4, Albumin 3.1 L, Globulin 3.3, Lipase 39 L 03/22/20 16:42: POC Glucose 112 H 03/22/20 22:14: POC Glucose 119 H 03/23/20 05:05: WBC 8.0, RBC 3.72 L, Hgb 10.4 L, Hct 33.1 L, MCV 89.0, MCH 28.0, MCHC 31.4 L, RDW Std Deviation 50.9 H, RDW Coeff of Halima 15.7 H, Plt Count 160, MPV 10.3, Immature Gran % (Auto) 0.500, Neut % (Auto) 79.1 H, Lymph % (Auto) 3.7 L, Bell % (Auto) 15.2 H, Eos % (Auto) 1.1, Baso % (Auto) 0.4, Absolute Neuts (auto) 6.4, Absolute Lymphs (auto) 0.30 L, Nucleated RBC % 0, Differential Comment SCANNED 03/23/20 05:05: Sodium 139, Potassium 4.7, Chloride 107, Carbon Dioxide 28.0, Anion Gap 4 L, BUN 40 H, Creatinine 2.31 H, Estim Creat Clear Calc 17.61, Est GFR (MDRD) Af Amer 26 L, Est GFR (MDRD) Non-Af 22 L, BUN/Creatinine Ratio 17.3, Glucose 97, Calcium 7.9 L, Total Bilirubin 1.40 H, AST 6 L, ALT 9 L, Alkaline Phosphatase 61, Total Protein 5.7 L, Albumin 2.6 L, Globulin 3.1, Albumin/Globulin Ratio 0.8 L 03/23/20 05:40: Urine Color Yellow, Urine Clarity Sl. Cloudy, Urine pH 6.0, Ur Specific [place] 1.015, Urine Protein 30 H, Urine Glucose (UA) Normal, Urine Ketones 5 H, Urine Occult Blood 50 H, Urine Nitrite Negative, Urine Bilirubin Negative, Urine Urobilinogen Normal, Ur Leukocyte Esterase 500 H, Urine RBC 0 SEEN, Urine WBC 10-25 SEEN, Ur Squamous Epith Cells 10-25 SEEN, Urine Bacteria 0 SEEN, Urine Mucus 0 SEEN 03/23/20 06:53: POC Glucose 105 Current Medications Acetaminophen (Acetaminophen 650 Mg Suppository) 650 mg RECTAL Q4H PRN PRN PRN Reason: Pain Score 1-10/Temp > 100.7 F Dextrose (Dextrose 50%-Water 25 Gm/50 Ml Disp.Syrin) 0 gm IV X1 PRN; Protocol PRN Reason: Hypoglycemia Glucagon (Glucagon 1 Mg/Ml Syringe) 1 mg IM .X1 PRN PRN Reason: Hypoglycemia Heparin Sodium (Beef Lung) (Heparin Pf Lock 10 Units/Ml 50 Units/5 Ml Syringe) 50 units IV UD PRN PRN Reason: Port-a-Cath (VAD)Heparin Flush Heparin Sodium (Porcine) (Heparin Injection (Vial) 5,000 Unit/Ml Vial) 5,000 unit SC Q12 [facility] Last Admin: 03/23/20 08:02 Dose: 5,000 unit Documented by: Sodium Chloride () 250 mls @ 15 mls/hr IV .[id number] PRN PRN Reason: Additional IVPB Infusion Sodium Chloride () 1,000 mls @ 999 mls/hr IV .Q1H1M ONE Stop: 03/23/20 08:26 Last Admin: 03/23/20 07:55 Dose: 999 mls/hr Documented by: Sodium Chloride () 1,000 mls @ 150 mls/hr IV .[id number] [facility] Insulin Human Lispro (Insulin Lispro 100 Unit/Ml Insuln.Pen) [facility]; Protocol Last Admin: 03/23/20 07:09 Dose: Not Given Documented by: Morphine Sulfate (Morphine 2 Mg/Ml Syringe) 2 mg IV Q3H PRN PRN PRN Reason: Pain Score 4-5 Morphine Sulfate (Morphine 4 Mg/Ml Syringe) 4 mg IV Q3H PRN PRN PRN Reason: Pain Score 6-10 Last Admin: 03/23/20 05:30 Dose: 4 mg Documented by: Ondansetron HCl (Ondansetron 4 Mg/2 Ml Vial) 4 mg IV Q8H PRN PRN PRN Reason: NAUSEA/VOMITING Prochlorperazine Edisylate (Prochlorperazine 10 Mg/2 Ml Vial) 5 mg IV Q4H PRN PRN PRN Reason: Breakthrough nausea/vomiting Sodium Chloride (0.9% Saline Lock 10 Ml Syringe) 10 - 40 ml IV UD PRN PRN Reason: Port-a-Cath (VAD) Flush Last Admin: 03/22/20 22:08 Dose: 20 ml Documented by: Sodium Chloride (0.9 % Nacl (Sterile) Posiflush 10 Ml) 10 - 40 ml IV UD PRN PRN Reason: Port access or dressing change Sodium Chloride (0.9% Saline Lock 10 Ml Syringe) 10 - 40 ml IV UD PRN PRN Reason: SALINE FLUSH Medical Necessity - Tobacco Use Smoking Status: Never smoker Assessment/Plan All Active Problems (Last Updated 03/22/20 @ 14:[address] Júnior Felder, DO) SBO (small bowel obstruction) (Acute) STORMY (acute kidney injury) (Acute) Hydronephrosis (Acute) Impression: small bowel obstruction due to adhesions/radiation Plan: continue NG tube, IV hydration - may have to consider NICKY Given the patient is not in extremis (i.e. no signs of sepsis, etc.) any surgical intervention in the abdomen, in my opinion, would be prohibitive, due to patient's disease I would recommend non surgical therapy of continued NG tube decompression and consideration of NICKY, If she continues to require NG tube decompression, may consider PEG tube placement instead for bowel decompression (but this has potential consequences as well), since she is tolerating NG tube placement - would continue with this
[2020-03-23 09:59] VITALS: BP 109/59; PULSE 84; RESP 18; TEMP 36.7; O2SAT 92
[2020-03-23] MEDS: 0.9% Normal Saline 1,000 ML 150 ML IV (11:11)
[2020-03-23 11:25] LABS: Bedside Glucose 99 mg/dL (70-110)
--- NOTE | 2020-03-23 11:44 | PCM.PN.HOSP ---
Patient Problems: Active and Suspected Problems (Last Updated 03/22/20 @ 14:[address] Júnior Felder, DO) SBO (small bowel obstruction) (Acute) STROMY (acute kidney injury) (Acute) Hydronephrosis (Acute) Reason for Visit: SBO Subjective: ongoing mild abd pain. no nausea/vomiting. tolerating NG. Pt states wishes to go home and . She refuses to consider hospice in any form due to a negative experience in the past. The patient wants to go home so that she can meet with her securities attorney to make her children her executors and sign away her finances before she dies etc. She is attempting to get the securities attorney to come in today to sign forms. Vitals/I&O's: Vital Signs Temp Pulse Resp BP Pulse Ox 98.1 F 84 18 109/59 L 92 03/23/20 09:59 03/23/20 09:59 03/23/20 09:59 03/23/20 09:59 03/23/20 09:59 Oxygen Flow Rate (L/min) 2 Oxygen Delivery Method Nasal Cannula Weight: 217 lb 9.54 oz Body Mass Index (BMI) 37.3 Intake and Output for Last 24 Hours 03/21/20 03/22/20 03/23/20 23:59 23:59 23:59 Intake Total 1760.00 / 2700.00 4004.58 / 4004.58 Output Total 50 / 800 1700 / 1700 Balance 1710.00 / 1900.00 2304.58 / 2304.58 General: Alert, Oriented x3, Cooperative HEENT: Atraumatic, PERRLA, EOMI, Normocephalic Neck: Supple, No JVD, Negative Carotid Bruits Lungs: Clear to auscultation, Normal air movement Cardiovascular: Regular rate, No murmurs Abdomen: Hypoactive Bowel Sounds, Distended Extremities: No edema, Capillary Refill Less than 3 Seconds Skin: No rashes, No breakdown Musculoskeletal: No Tenderness to Palpation of Joints or Extremities Neurological: Cranial nerves II-XII grossly intact Psych/Mental Status: Normal Affect, Appropriate, Alert and oriented to time, place, person, mood and affect Laboratory Results 03/22/20 12:00: WBC 11.2 H, RBC 4.42, Hgb 12.4, Hct 38.2, MCV 86.4, MCH 28.1, MCHC 32.5, RDW Std Deviation 47.9 H, RDW Coeff of Halima 15.2 H, Plt Count 195, MPV 10.5, Immature Gran % (Auto) 0.400, Neut % (Auto) 83.0 H, Lymph % (Auto) 2.6 L, [place] % (Auto) 13.3 H, Eos % (Auto) 0.4, Baso % (Auto) 0.3, Absolute Neuts (auto) 9.3 H, Absolute Lymphs (auto) 0.29 L, Nucleated RBC % 0, Differential Comment , Platelet Estimate ADEQUATE, RBC Morphology NORM C+C 03/22/20 12:00: Sodium 141, Potassium 4.4, Chloride 106, Carbon Dioxide 30.0, Anion Gap 5, BUN 36 H, Creatinine 2.20 H, Estim Creat Clear Calc 18.49, Est GFR (MDRD) Af Amer 28 L, Est GFR (MDRD) Non-Af 23 L, BUN/Creatinine Ratio 16.4, Glucose 142 H, Calcium 9.0, Total Bilirubin 1.70 H, Direct Bilirubin 0.76 H, AST 6 L, ALT 10 L, Alkaline Phosphatase 71, Total Protein 6.4, Albumin 3.1 L, Globulin 3.3, Lipase 39 L 03/22/20 16:42: POC Glucose 112 H 03/22/20 22:14: POC Glucose 119 H 03/23/20 05:05: WBC 8.0, RBC 3.72 L, Hgb 10.4 L, Hct 33.1 L, MCV 89.0, MCH 28.0, MCHC 31.4 L, RDW Std Deviation 50.9 H, RDW Coeff of Halima 15.7 H, Plt Count 160, MPV 10.3, Immature Gran % (Auto) 0.500, Neut % (Auto) 79.1 H, Lymph % (Auto) 3.7 L, [place] % (Auto) 15.2 H, Eos % (Auto) 1.1, Baso % (Auto) 0.4, Absolute Neuts (auto) 6.4, Absolute Lymphs (auto) 0.30 L, Nucleated RBC % 0, Differential Comment SCANNED 03/23/20 05:05: Sodium 139, Potassium 4.7, Chloride 107, Carbon Dioxide 28.0, Anion Gap 4 L, BUN 40 H, Creatinine 2.31 H, Estim Creat Clear Calc 17.61, Est GFR (MDRD) Af Amer 26 L, Est GFR (MDRD) Non-Af 22 L, BUN/Creatinine Ratio 17.3, Glucose 97, Calcium 7.9 L, Total Bilirubin 1.40 H, AST 6 L, ALT 9 L, Alkaline Phosphatase 61, Total Protein 5.7 L, Albumin 2.6 L, Globulin 3.1, Albumin/Globulin Ratio 0.8 L 03/23/20 05:40: Urine Color Yellow, Urine Clarity Sl. Cloudy, Urine pH 6.0, Ur Specific [place] 1.015, Urine Protein 30 H, Urine Glucose (UA) Normal, Urine Ketones 5 H, Urine Occult Blood 50 H, Urine Nitrite Negative, Urine Bilirubin Negative, Urine Urobilinogen Normal, Ur Leukocyte Esterase 500 H, Urine RBC 0 SEEN, Urine WBC 10-25 SEEN, Ur Squamous Epith Cells 10-25 SEEN, Urine Bacteria 0 SEEN, Urine Mucus 0 SEEN 03/23/20 06:53: POC Glucose 105 03/23/20 11:19: POC Glucose 99 Current Medications Acetaminophen (Acetaminophen 650 Mg Suppository) 650 mg RECTAL Q4H PRN PRN PRN Reason: Pain Score 1-10/Temp > 100.7 F Dextrose (Dextrose 50%-Water 25 Gm/50 Ml Disp.Syrin) 0 gm IV X1 PRN; Protocol PRN Reason: Hypoglycemia Glucagon (Glucagon 1 Mg/Ml Syringe) 1 mg IM .X1 PRN PRN Reason: Hypoglycemia Heparin Sodium (Beef Lung) (Heparin Pf Lock 10 Units/Ml 50 Units/5 Ml Syringe) 50 units IV UD PRN PRN Reason: Port-a-Cath (VAD)Heparin Flush Heparin Sodium (Porcine) (Heparin Injection (Vial) 5,000 Unit/Ml Vial) 5,000 unit SC Q12 [facility] Last Admin: 03/23/20 08:02 Dose: 5,000 unit Documented by: Sodium Chloride () 250 mls @ 15 mls/hr IV .[id number] PRN PRN Reason: Additional IVPB Infusion Sodium Chloride () 1,000 mls @ 150 mls/hr IV .Q6H40M [facility] Last Admin: 03/23/20 11:11 Dose: 150 mls/hr Documented by: Insulin Human Lispro (Insulin Lispro 100 Unit/Ml Insuln.Pen) 0 unit SC TIDAC [facility]; Protocol Last Admin: 03/23/20 11:20 Dose: Not Given Documented by: Morphine Sulfate (Morphine 2 Mg/Ml Syringe) 2 mg IV Q3H PRN PRN PRN Reason: Pain Score 4-5 Morphine Sulfate (Morphine 4 Mg/Ml Syringe) 4 mg IV Q3H PRN PRN PRN Reason: Pain Score 6-10 Last Admin: 03/23/20 11:11 Dose: 4 mg Documented by: Ondansetron HCl (Ondansetron 4 Mg/2 Ml Vial) 4 mg IV Q8H PRN PRN PRN Reason: NAUSEA/VOMITING Prochlorperazine Edisylate (Prochlorperazine 10 Mg/2 Ml Vial) 5 mg IV Q4H PRN PRN PRN Reason: Breakthrough nausea/vomiting Sodium Chloride (0.9% Saline Lock 10 Ml Syringe) 10 - 40 ml IV UD PRN PRN Reason: Port-a-Cath (VAD) Flush Last Admin: 03/22/20 22:08 Dose: 20 ml Documented by: Sodium Chloride (0.9 % Nacl (Sterile) Posiflush 10 Ml) 10 - 40 ml IV UD PRN PRN Reason: Port access or dressing change Sodium Chloride (0.9% Saline Lock 10 Ml Syringe) 10 - 40 ml IV UD PRN PRN Reason: SALINE FLUSH STROKE Vital Signs/Narrative: Vital Signs Temp Pulse Resp BP Pulse Ox 03/23/20 09:59 98.1 F 84 18 109/59 L 92 03/23/20 07:59 98.6 F 79 18 96/48 L 92 Medical Necessity - Tobacco Use Smoking Status: Never smoker Assessment/Plan All Active Problems (Last Updated 03/22/20 @ 14:[address] Júnior Felder, DO) SBO (small bowel obstruction) (Acute) STORMY (acute kidney injury) (Acute) Hydronephrosis (Acute) 1. SBO due to colorectal cancer with possible carcinomatosis and liver mets - Some relief with NG at this time. Still markedly distended. Dr. Gaines following. Continue current plan. Colostomy in place. Had been receiving palliative chemo/rads. Has had colectomy/proctectomy. 2. STORMY, mild hydronephrosis, perinephric stranding - worsening. no obstructive stone. Continue IVF. Hold rachel-i. 3. DMt2 - SSI DVT ppx: heparin DC planning: Prognosis is poor. I have explained this to her at length. Bowel obstruction has not improved and renal failure has worsened. Pt refuses to consider any form of hospice due to a poor experience with a family member in the past. She is agreeable to staying in the hospital to receive care if we allow her securities attorney to come to the hospital to sign her will/executor/financial paperwork. Children are POA. Pt A/Ox3 at this time. Advanced care planning: Her prognosis is poor. Hospice and code status/options discussed at length. Pt has no interest in hospice. She wants to stop care and go home with no hospice so that she can meet with an securities attorney. While she is here at the hospital she wants all possible care. She wants to remain full code. She wants CPR/Intubation/Feeding tube and all other measures while here. This patient was seen by Charly Bwoden PA-C under the supervision of Dr. Polanco.
--- NOTE | 2020-03-23 11:55 | NURSING ---
talked w/ Boiler Room Operator after talking with Charly PULLIAM, aware end of life situation, permitting son & daughter only to visit.
[2020-03-23 15:52] VITALS: BP 102/44; PULSE 81; RESP 18; TEMP 36.6; O2SAT 100
[2020-03-23] MEDS: Dextrose 5%/0.9% NaCl 1,000 ML 125 ML IV (16:00)
[2020-03-23 17:50] LABS: Bedside Glucose 88 mg/dL (70-110)
[2020-03-23 20:32] VITALS: BP 114/53; PULSE 76; RESP 18; TEMP 36.6; O2SAT 96
[2020-03-23] MEDS: 0.9% Saline Lock 10 ML Syringe IV ×2 (20:37→20:44)
[2020-03-24] VITALS (8 sets, daily range): BP systolic 126–141; BP diastolic 48–68; PULSE 75–87; RESP 16–18; TEMP 36.4–36.8; O2SAT 94–99
[2020-03-24] MEDS: Dextrose 5%/0.9% NaCl 1,000 ML 125 ML IV ×4 (00:02→22:37)
[2020-03-24 00:15] LABS: Bedside Glucose 110 mg/dL (70-110)
[2020-03-24] MEDS: 0.9% Saline Lock 10 ML Syringe IV ×5 (05:54→22:33)
[2020-03-24] MEDS: Morphine 4 MG/ML Syringe IV ×2 (05:55→14:43)
[2020-03-24 06:39] LABS: Absolute Lymphocyte Count 0.19 X10^3/uL (0.83-4.51); Absolute Neutrophil Count 4.4 X10^3/uL (2.0-7.7); Basophil# 0.02 X10^3/uL; Basophil% 0.4 % (0-1); Differential Indicated SCAN CRITERIA MET; Eosinophil# 0.14 X10^3/uL; Eosinophils% 2.5 % (0-5); Hematocrit 32.2 % (37-47); Hemoglobin 10.1 g/dL (12.0-15.0); Lymphocyte # 0.19 X10^3/ul (4.0); Lymphocyte % 3.4 % (19-41); Mean Corp Hgb Conc 31.4 g/dL (32-36); Mean Corpuscular Hgb 28.1 pg (27.0-32.0); Mean Corpuscular Volume 89.4 fL (81-99); Mean Platelet Vol. 10.1 fl (6.2-12.0); Monocyte# 0.79 X10^3/uL; Monocyte% 14.3 % (0-10); NRBC Flagged by Analyzer 0 % (0-5); Neutrophil # 4.36 X10^3/uL (2.7-7.7); Neutrophil % 78.9 % (47-70); POSITIVE DIFFERENTIAL YES; Platelet Count 144 K/mm3 (150-450); RBC Distribution Width CV 15.6 % (11.6-14.6); RBC Distribution Width SD 51.8 fl (35.1-43.9); White Blood Count 5.5 K/mm3 (4.4-11.0)
[2020-03-24 07:23] LABS: ALB/GLOB Ratio 0.7 RATIO (0.9-2.4); AST(SGOT) 5 U/L (15-37); Alanine Aminotransfer ALT/SGPT < 6 U/L (13-56); Albumin, Serum 2.2 g/dL (3.2-5.0); Alkaline Phosphatase 77 U/L (45-117); Anion Gap 5 (5-15); BUN 40 mg/dL (7-18); BUN/Creat Ratio 16.6 RATIO (10-20); Calcium,Total 7.7 mg/dL (8.5-10.1); Chloride 113 mmol/L (98-107); Creatinine, Serum 2.41 mg/dL (0.55-1.02); EST Glomerular Filtration Rate 21 mL/min (>60); Est Glom Filt Rate - Afr Amer 25 mL/min (>60); Estimated Creatinine Clearance 16.88 ml/min; Globulin 3.1 g/dL (2.2-4.2); Glucose 122 mg/dL (74-106); Potassium 4.2 mmol/L (3.5-5.1); Protein, Total 5.3 g/dL (6.4-8.2); Sodium Level 144 mmol/L (136-145)
[2020-03-24 07:26] LABS: Differential Comment SCANNED
--- NOTE | 2020-03-24 07:33 | RAD_ITS ---
STUDY: X-RAY - ABDOMEN/PELVIS REASON FOR EXAM: Female, 79 years old. SBO TECHNIQUE: AP supine and upright views of the abdomen and pelvis. COMPARISON: 03/22/2020 FINDINGS: Nasogastric tube with the tip in the body the stomach. Multiple loops of mildly dilated air-filled small bowel with no gas seen in the colon consistent with a mild small bowel obstruction. There is no demonstrated free abdominal air. The visualized liver, spleen and kidneys are grossly normal in size and morphology. Normal soft tissue structures. Normal visualized osseous structures. RAD/Abd Inc Decub and/or Erect IMPRESSION: Markedly improved small bowel obstruction with a nasogastric tube. Electronically Signed: Jose Luis Casas MD at 8:04 EST Tel , Service support ,
[2020-03-24] MEDS: Morphine 2 MG/ML Syringe IV ×2 (09:15→22:33)
[2020-03-24] MEDS: Heparin Injection (Vial) 5,000 UNIT/ML VIAL 5000 UNIT SC ×2 (09:16→22:16)
--- NOTE | 2020-03-24 09:44 | PCM.PN.SRG ---
Patient Problems: Active and Suspected Problems (Last Updated 03/22/20 @ 14:[address] Júnior Felder, DO) SBO (small bowel obstruction) (Acute) STORMY (acute kidney injury) (Acute) Hydronephrosis (Acute) Subjective: patient still with abdominal tenderness - but pain controlled with medications, no changes with stoma output - Physical Exam Vitals/I&O's: Vital Signs Temp Pulse Resp BP Pulse Ox 97.9 F 76 16 132/53 H 97 03/24/20 08:54 03/24/20 08:54 03/24/20 08:54 03/24/20 08:54 03/24/20 08:54 Oxygen Flow Rate (L/min) 2 Oxygen Delivery Method Nasal Cannula Weight: 98.7 kg Body Mass Index (BMI) 37.3 Intake and Output for Last 24 Hours 03/22/20 03/23/20 03/24/20 23:59 23:59 23:59 Intake Total 1760.00 / 2700.00 5111.66 / 5111.66 2054.58 / 2054.58 Output Total 50 / 800 4200 / 4200 500 / 500 Balance 1710.00 / 1900.00 911.66 / 911.66 1554.58 / 1554.58 General: Alert HEENT: Atraumatic Oral: Moist Mucosa Neck: Supple Lungs: Normal air movement Abdomen: Soft - tender throughout, tympanitic/distended Laboratory Results 03/23/20 11:19: POC Glucose 99 03/23/20 17:47: POC Glucose 88 03/24/20 00:05: POC Glucose 110 03/24/20 05:48: WBC 5.5, RBC 3.60 L, Hgb 10.1 L, Hct 32.2 L, MCV 89.4, MCH 28.1, MCHC 31.4 L, RDW Std Deviation 51.8 H, RDW Coeff of Halima 15.6 H, Plt Count 144 L, MPV 10.1, Immature Gran % (Auto) 0.500, Neut % (Auto) 78.9 H, Lymph % (Auto) 3.4 L, [place] % (Auto) 14.3 H, Eos % (Auto) 2.5, Baso % (Auto) 0.4, Absolute Neuts (auto) 4.4, Absolute Lymphs (auto) 0.19 L, Nucleated RBC % 0, Differential Comment SCANNED 03/24/20 05:48: Sodium 144, Potassium 4.2, Chloride 113 H, Carbon Dioxide 26.0, Anion Gap 5, BUN 40 H, Creatinine 2.41 H, Estim Creat Clear Calc 16.88, Est GFR (MDRD) Af Amer 25 L, Est GFR (MDRD) Non-Af 21 L, BUN/Creatinine Ratio 16.6, Glucose 122 H, Calcium 7.7 L, Total Bilirubin 1.10 H, AST 5 L, ALT < 6 L, Alkaline Phosphatase 77, Total Protein 5.3 L, Albumin 2.2 L, Globulin 3.1, Albumin/Globulin Ratio 0.7 L Current Medications Acetaminophen (Acetaminophen 650 Mg Suppository) 650 mg RECTAL Q4H PRN PRN PRN Reason: Pain Score 1-10/Temp > 100.7 F Dextrose (Dextrose 50%-Water 25 Gm/50 Ml Disp.Syrin) 0 gm IV X1 PRN; Protocol PRN Reason: Hypoglycemia Glucagon (Glucagon 1 Mg/Ml Syringe) 1 mg IM .X1 PRN PRN Reason: Hypoglycemia Heparin Sodium (Beef Lung) (Heparin Pf Lock 10 Units/Ml 50 Units/5 Ml Syringe) 50 units IV UD PRN PRN Reason: Port-a-Cath (VAD)Heparin Flush Heparin Sodium (Porcine) (Heparin Injection (Vial) 5,000 Unit/Ml Vial) 5,000 unit SC Q12 [facility] Last Admin: 03/24/20 09:16 Dose: 5,000 unit Documented by: Hydroxyzine Pamoate (Hydroxyzine Maritza 25 Mg Capsule) 25 mg PO TID PRN PRN PRN Reason: ANXIETY Sodium Chloride () 250 mls @ 15 mls/hr IV .[id number] PRN PRN Reason: Additional IVPB Infusion Pantoprazole Sodium 40 mg/ (Sodium Chloride) 110 mls @ 330 mls/hr IV Q24 [facility] Last Admin: 03/24/20 09:13 Dose: 330 mls/hr Documented by: Dextrose/Sodium Chloride (Dextrose 5%/0.9% Nacl) 1,000 mls @ 125 mls/hr IV .Q8H [facility] Last Admin: 03/24/20 06:27 Dose: 125 mls/hr Documented by: Insulin Human Lispro (Insulin Lispro 100 Unit/Ml Insuln.Pen) 0 unit SC Q6 [facility]; Protocol Last Admin: 03/24/20 06:03 Dose: Not Given Documented by: Morphine Sulfate (Morphine 2 Mg/Ml Syringe) 2 mg IV Q3H PRN PRN PRN Reason: Pain Score 4-5 Last Admin: 03/24/20 09:15 Dose: 2 mg Documented by: Morphine Sulfate (Morphine 4 Mg/Ml Syringe) 4 mg IV Q3H PRN PRN PRN Reason: Pain Score 6-10 Last Admin: 03/24/20 05:55 Dose: 4 mg Documented by: Ondansetron HCl (Ondansetron 4 Mg/2 Ml Vial) 4 mg IV Q8H PRN PRN PRN Reason: NAUSEA/VOMITING Prochlorperazine Edisylate (Prochlorperazine 10 Mg/2 Ml Vial) 5 mg IV Q4H PRN PRN PRN Reason: Breakthrough nausea/vomiting Sodium Chloride (0.9% Saline Lock 10 Ml Syringe) 10 - 40 ml IV UD PRN PRN Reason: Port-a-Cath (VAD) Flush Last Admin: 03/24/20 09:16 Dose: 10 ml Documented by: Sodium Chloride (0.9 % Nacl (Sterile) Posiflush 10 Ml) 10 - 40 ml IV UD PRN PRN Reason: Port access or dressing change Sodium Chloride (0.9% Saline Lock 10 Ml Syringe) 10 - 40 ml IV UD PRN PRN Reason: SALINE FLUSH Zolpidem Tartrate (Zolpidem Tartrate 5 Mg Tablet) 5 mg PO QHS PRN PRN PRN Reason: INSOMNIA Medical Necessity - Tobacco Use Smoking Status: Never smoker Assessment/Plan All Active Problems (Last Updated 03/22/20 @ 14:[address] Júnior Felder, DO) SBO (small bowel obstruction) (Acute) STORMY (acute kidney injury) (Acute) Hydronephrosis (Acute) Impression: small bowel obstruction due to adhesions/radiation Plan: continue NG tube, IV hydration - may have to consider NICKY Given the patient is not in extremis (i.e. no signs of sepsis, etc.) any surgical intervention in the abdomen, in my opinion, would be prohibitive, due to patient's disease I would recommend non surgical therapy of continued NG tube decompression and consideration of NICKY, Will discuss with Dr. Masci tomorrow - patient's prognosis and condition
--- NOTE | 2020-03-24 10:53 | PN_ITS ---
Patient Problems: Active and Suspected Problems (Last Updated 03/22/20 @ 14:[address] Júnior Felder, DO) SBO (small bowel obstruction) (Acute) STORMY (acute kidney injury) (Acute) Hydronephrosis (Acute) Reason for Visit: SBO Subjective: Improvement, but not resolution of, pain, tenderness, nausea, and distention. No fever/chills. Pt had urinary retention >900 cc last night so armijo placed. no fever/chills, sob, cough. Vitals/I&O's: Vital Signs Temp Pulse Resp BP Pulse Ox 97.9 F 76 16 132/53 H 97 03/24/20 08:54 03/24/20 08:54 03/24/20 08:54 03/24/20 08:54 03/24/20 08:54 Oxygen Flow Rate (L/min) 2 Oxygen Delivery Method Nasal Cannula Weight: 217 lb 9.54 oz Body Mass Index (BMI) 37.3 Intake and Output for Last 24 Hours 03/22/20 03/23/20 03/24/20 23:59 23:59 23:59 Intake Total 1760.00 / 2700.00 5111.66 / 5111.66 2164.58 / 2164.58 Output Total 50 / 800 4200 / 4200 500 / 500 Balance 1710.00 / 1900.00 911.66 / 911.66 1664.58 / 1664.58 General: Alert, Oriented x3, Cooperative HEENT: Atraumatic, PERRLA, EOMI, Normocephalic Neck: Supple, No JVD, Negative Carotid Bruits Lungs: Clear to auscultation, Normal air movement Cardiovascular: Regular rate, No murmurs Abdomen: Hypoactive Bowel Sounds, Distended, Tender Extremities: No edema, Capillary Refill Less than 3 Seconds Skin: No rashes, No breakdown Musculoskeletal: No Tenderness to Palpation of Joints or Extremities Neurological: Cranial nerves II-XII grossly intact Psych/Mental Status: Normal Affect, Appropriate, Alert and oriented to time, place, person, mood and affect Laboratory Results 03/23/20 11:19: POC Glucose 99 03/23/20 17:47: POC Glucose 88 03/24/20 00:05: POC Glucose 110 03/24/20 05:48: WBC 5.5, RBC 3.60 L, Hgb 10.1 L, Hct 32.2 L, MCV 89.4, MCH 28.1, MCHC 31.4 L, RDW Std Deviation 51.8 H, RDW Coeff of Halima 15.6 H, Plt Count 144 L, MPV 10.1, Immature Gran % (Auto) 0.500, Neut % (Auto) 78.9 H, Lymph % (Auto) 3.4 L, [place] % (Auto) 14.3 H, Eos % (Auto) 2.5, Baso % (Auto) 0.4, Absolute Neuts (auto) 4.4, Absolute Lymphs (auto) 0.19 L, Nucleated RBC % 0, Differential Comment SCANNED 03/24/20 05:48: Sodium 144, Potassium 4.2, Chloride 113 H, Carbon Dioxide 26.0, Anion Gap 5, BUN 40 H, Creatinine 2.41 H, Estim Creat Clear Calc 16.88, Est GFR (MDRD) Af Amer 25 L, Est GFR (MDRD) Non-Af 21 L, BUN/Creatinine Ratio 16.6, Glucose 122 H, Calcium 7.7 L, Total Bilirubin 1.10 H, AST 5 L, ALT < 6 L, Alkaline Phosphatase 77, Total Protein 5.3 L, Albumin 2.2 L, Globulin 3.1, Albumin/Globulin Ratio 0.7 L Current Medications Acetaminophen (Acetaminophen 650 Mg Suppository) 650 mg RECTAL Q4H PRN PRN PRN Reason: Pain Score 1-10/Temp > 100.7 F Dextrose (Dextrose 50%-Water 25 Gm/50 Ml Disp.Syrin) 0 gm IV X1 PRN; Protocol PRN Reason: Hypoglycemia Glucagon (Glucagon 1 Mg/Ml Syringe) 1 mg IM .X1 PRN PRN Reason: Hypoglycemia Heparin Sodium (Beef Lung) (Heparin Pf Lock 10 Units/Ml 50 Units/5 Ml Syringe) 50 units IV UD PRN PRN Reason: Port-a-Cath (VAD)Heparin Flush Heparin Sodium (Porcine) (Heparin Injection (Vial) 5,000 Unit/Ml Vial) 5,000 unit SC Q12 [facility] Last Admin: 03/24/20 09:16 Dose: 5,000 unit Documented by: Hydroxyzine Pamoate (Hydroxyzine Maritza 25 Mg Capsule) 25 mg PO TID PRN PRN PRN Reason: ANXIETY Sodium Chloride () 250 mls @ 15 mls/hr IV .[id number] PRN PRN Reason: Additional IVPB Infusion Pantoprazole Sodium 40 mg/ (Sodium Chloride) 110 mls @ 330 mls/hr IV Q24 [facility] Last Infusion: 03/24/20 09:33 Dose: Infused Documented by: Dextrose/Sodium Chloride (Dextrose 5%/0.9% Nacl) 1,000 mls @ 125 mls/hr IV .Q8H [facility] Last Admin: 03/24/20 06:27 Dose: 125 mls/hr Documented by: Insulin Human Lispro (Insulin Lispro 100 Unit/Ml Insuln.Pen) 0 unit SC Q6 [facility]; Protocol Last Admin: 03/24/20 06:03 Dose: Not Given Documented by: Morphine Sulfate (Morphine 2 Mg/Ml Syringe) 2 mg IV Q3H PRN PRN PRN Reason: Pain Score 4-5 Last Admin: 03/24/20 09:15 Dose: 2 mg Documented by: Morphine Sulfate (Morphine 4 Mg/Ml Syringe) 4 mg IV Q3H PRN PRN PRN Reason: Pain Score 6-10 Last Admin: 03/24/20 05:55 Dose: 4 mg Documented by: Ondansetron HCl (Ondansetron 4 Mg/2 Ml Vial) 4 mg IV Q8H PRN PRN PRN Reason: NAUSEA/VOMITING Prochlorperazine Edisylate (Prochlorperazine 10 Mg/2 Ml Vial) 5 mg IV Q4H PRN PRN PRN Reason: Breakthrough nausea/vomiting Sodium Chloride (0.9% Saline Lock 10 Ml Syringe) 10 - 40 ml IV UD PRN PRN Reason: Port-a-Cath (VAD) Flush Last Admin: 03/24/20 09:16 Dose: 10 ml Documented by: Sodium Chloride (0.9 % Nacl (Sterile) Posiflush 10 Ml) 10 - 40 ml IV UD PRN PRN Reason: Port access or dressing change Sodium Chloride (0.9% Saline Lock 10 Ml Syringe) 10 - 40 ml IV UD PRN PRN Reason: SALINE FLUSH Zolpidem Tartrate (Zolpidem Tartrate 5 Mg Tablet) 5 mg PO QHS PRN PRN PRN Reason: INSOMNIA STROKE Vital Signs/Narrative: Vital Signs Temp Pulse Resp BP Pulse Ox 03/24/20 08:54 97.9 F 76 16 132/53 H 97 Medical Necessity - Tobacco Use Smoking Status: Never smoker Assessment/Plan All Active Problems (Last Updated 03/22/20 @ 14:[address] Júnior Felder, ) SBO (small bowel obstruction) (Acute) STORMY (acute kidney injury) (Acute) Hydronephrosis (Acute) 1. SBO due to colorectal cancer with possible carcinomatosis and liver mets - Improving with NG. XR shows improvement in SBO. Continue current plan. Dr. Gaines following. F/U with [facility]. 2. STORMY, mild hydronephrosis, perinephric stranding 2/2 urinary retention - worsening. no obstructive stone. Continue IVF. Hold rachel-i. Pt bladder scanned for >900 - armijo cath placed. 3. DMt2 - SSI DVT ppx: heparin DC planning: Prognosis is poor, however at this time her SBO is improved. This patient was seen by Charly Bowden PA-C under the supervision of Dr. Polanco.
[2020-03-24 12:01] LABS: Bedside Glucose 112 mg/dL (70-110)
[2020-03-24 12:16] LABS: Bedside Glucose 106 mg/dL (70-110)
--- NOTE | 2020-03-24 14:44 | EKG12_ITS ---
Test Reason : CP Blood Pressure : / mmHG Vent. Rate : 088 BPM Atrial Rate : 088 BPM P-R Int : 126 ms QRS Dur : 090 ms QT Int : 378 ms P-R-T Axes : 024 -38 038 degrees QTc Int : 457 ms Normal sinus rhythm Left axis deviation Low voltage QRS Abnormal ECG Confirmed by JOSE J PUENTE, AUGUSTUS ([id number]), purchase request editor SABINO BARNEY ([id number]) on 03/27/2020 1:55:11 PM Referred By: ANIA Confirmed By:AUGUSTUS LUX MD
[2020-03-24 17:20] LABS: Bedside Glucose 111 mg/dL (70-110)
[2020-03-25] VITALS (8 sets, daily range): BP systolic 133–140; BP diastolic 65–66; PULSE 73–80; RESP 18; TEMP 36.5–36.8; O2SAT 92–100
[2020-03-25 00:55] LABS: Bedside Glucose 129 mg/dL (70-110)
--- NOTE | 2020-03-25 05:25 | RAD_ITS ---
HISTORY: SBO EXAMINATION/TECHNIQUE: XR Abdomen W/ Decub and/or Erect Views: COMPARISON: March 24, 2020 FINDINGS: LINES AND TUBES: NG tube with the tip in the fundus of the stomach and the side port near the GE junction. Consider advancing BOWEL GAS PATTERN: Gaseous distended small bowel with paucity of bowel gas in the colon. This is compatible with a small bowel obstruction. Slightly increased gaseous distention on today's study FREE AIR: None visualized. ORGANOMEGALY: Not seen. CALCIFICATIONS: No abnormal calcifications observed. LOWER CHEST: No acute pathology. BONES AND SOFT TISSUES: No acute pathology. RAD/Abd Decub and/or Erect(Portabl IMPRESSION: Is compatible with small bowel obstruction. Small bowel gas is slightly increased when compared to prior study NG tube with the tip in the fundus of the stomach and the side port near the GE junction. Consider advancing at 2237 Reported and signed by: Kelly Quintanilla DO Electronically Signed: Kelly Quintanilla DO at 22:36 EST Tel , Service support ,
[2020-03-25] MEDS: Dextrose 5%/0.9% NaCl 1,000 ML 125 ML IV ×2 (06:02→15:02)
[2020-03-25] MEDS: 0.9% Saline Lock 10 ML Syringe IV ×2 (06:06→12:31)
[2020-03-25] MEDS: Morphine 4 MG/ML Syringe IV ×3 (06:06→19:43)
[2020-03-25 06:07] LABS: Bedside Glucose 116 mg/dL (70-110)
[2020-03-25 07:39] LABS: Absolute Lymphocyte Count 0.21 X10^3/uL (0.83-4.51); Absolute Neutrophil Count 4.3 X10^3/uL (2.0-7.7); Basophil# 0.03 X10^3/uL; Basophil% 0.5 % (0-1); Differential Indicated SCAN CRITERIA MET; Eosinophil# 0.21 X10^3/uL; Eosinophils% 3.7 % (0-5); Hematocrit 35.4 % (37-47); Hemoglobin 10.6 g/dL (12.0-15.0); Lymphocyte # 0.21 X10^3/ul (4.0); Lymphocyte % 3.7 % (19-41); Mean Corp Hgb Conc 29.9 g/dL (32-36); Mean Corpuscular Hgb 27.8 pg (27.0-32.0); Mean Corpuscular Volume 92.9 fL (81-99); Mean Platelet Vol. 10.2 fl (6.2-12.0); Monocyte# 0.87 X10^3/uL; Monocyte% 15.3 % (0-10); NRBC Flagged by Analyzer 0 % (0-5); Neutrophil # 4.26 X10^3/uL (2.7-7.7); Neutrophil % 75.2 % (47-70); POSITIVE DIFFERENTIAL YES; Platelet Count 160 K/mm3 (150-450); RBC Distribution Width CV 15.5 % (11.6-14.6); RBC Distribution Width SD 52.8 fl (35.1-43.9); Red Blood Count 3.81 M/mm3 (4.2-5.4); White Blood Count 5.7 K/mm3 (4.4-11.0)
[2020-03-25 08:05] LABS: ALB/GLOB Ratio 0.6 RATIO (0.9-2.4); AST(SGOT) 8 U/L (15-37); Alanine Aminotransfer ALT/SGPT 7 U/L (13-56); Albumin, Serum 1.9 g/dL (3.2-5.0); Alkaline Phosphatase 147 U/L (45-117); Anion Gap 5 (5-15); BUN 38 mg/dL (7-18); BUN/Creat Ratio 14.9 RATIO (10-20); Calcium,Total 8.2 mg/dL (8.5-10.1); Chloride 117 mmol/L (98-107); Creatinine, Serum 2.55 mg/dL (0.55-1.02); EST Glomerular Filtration Rate 19 mL/min (>60); Est Glom Filt Rate - Afr Amer 23 mL/min (>60); Estimated Creatinine Clearance 15.95 ml/min; Globulin 3.4 g/dL (2.2-4.2); Glucose 140 mg/dL (74-106); Potassium 4.7 mmol/L (3.5-5.1); Protein, Total 5.3 g/dL (6.4-8.2); Sodium Level 148 mmol/L (136-145)
[2020-03-25] MEDS: Heparin Injection (Vial) 5,000 UNIT/ML VIAL 5000 UNIT SC (08:31)
--- NOTE | 2020-03-25 08:35 | NURSING ---
Was consulted on patient for colostomy care. pt states she has had her stoma since October,. States she and her daughter change the appliance at home typically 1-2 times a week. Pt denies any needs or concerns at this time. Appliance was changed by nursing on 03/24/20. will continue to monitor for needs or concerns.
--- NOTE | 2020-03-25 08:43 | PN.SURG_ITS ---
Patient Problems: Active and Suspected Problems (Last Updated 03/22/20 @ 14:[address] Júnior Felder, DO) SBO (small bowel obstruction) (Acute) STORMY (acute kidney injury) (Acute) Hydronephrosis (Acute) Subjective: no improvement noted - Physical Exam Vitals/I&O's: Vital Signs Temp Pulse Resp BP Pulse Ox 97.7 F L 75 18 133/65 H 100 03/25/20 08:25 03/25/20 08:25 03/25/20 08:25 03/25/20 08:25 03/25/20 08:25 Oxygen Flow Rate (L/min) 2 Oxygen Delivery Method Nasal Cannula Weight: 98.7 kg Body Mass Index (BMI) 37.3 Intake and Output for Last 24 Hours 03/23/20 03/24/20 03/25/20 23:59 23:59 23:59 Intake Total 5111.66 / 5111.66 4497.91 / 4497.91 1243.33 / 1243.33 Output Total 4200 / 4200 1950 / 1950 500 / 500 Balance 911.66 / 911.66 2547.91 / 2547.91 743.33 / 743.33 General: Alert, Oriented x3 Oral: Moist Mucosa Neck: Supple Lungs: Normal air movement Abdomen: Distended - generalized tenderness but no peritoneal signs Microbiology Past 72 Hours 03/23/20 05:40 Urine, Clean Catch Urine Culture - Final Pseudomonas aeroginosa Laboratory Results 03/24/20 06:00: POC Glucose 106 03/24/20 11:51: POC Glucose 112 H 03/24/20 15:25: Troponin I < 0.015 03/24/20 17:14: POC Glucose 111 H 03/25/20 00:46: POC Glucose 129 H 03/25/20 05:58: POC Glucose 116 H 03/25/20 07:19: WBC 5.7, RBC 3.81 L, Hgb 10.6 L, Hct 35.4 L, MCV 92.9, MCH 27.8, MCHC 29.9 L, RDW Std Deviation 52.8 H, RDW Coeff of Halima 15.5 H, Plt Count 160, MPV 10.2, Immature Gran % (Auto) 1.600 H, Neut % (Auto) 75.2 H, Lymph % (Auto) 3.7 L, [place] % (Auto) 15.3 H, Eos % (Auto) 3.7, Baso % (Auto) 0.5, Absolute Neuts (auto) 4.3, Absolute Lymphs (auto) 0.21 L, Nucleated RBC % 0, Differential Comment COMMENT 03/25/20 07:19: Sodium 148 H, Potassium 4.7, Chloride 117 H, Carbon Dioxide 26.0, Anion Gap 5, BUN 38 H, Creatinine 2.55 H, Estim Creat Clear Calc 15.95, Est GFR (MDRD) Af Amer 23 L, Est GFR (MDRD) Non-Af 19 L, BUN/Creatinine Ratio 14.9, Glucose 140 H, Calcium 8.2 L, Total Bilirubin 1.20 H, AST 8 L, ALT 7 L, Alkaline Phosphatase 147 H, Total Protein 5.3 L, Albumin 1.9 L, Globulin 3.4, Albumin/Globulin Ratio 0.6 L Current Medications Acetaminophen (Acetaminophen 650 Mg Suppository) 650 mg RECTAL Q4H PRN PRN PRN Reason: Pain Score 1-10/Temp > 100.7 F Dextrose (Dextrose 50%-Water 25 Gm/50 Ml Disp.Syrin) 0 gm IV X1 PRN; Protocol PRN Reason: Hypoglycemia Glucagon (Glucagon 1 Mg/Ml Syringe) 1 mg IM .X1 PRN PRN Reason: Hypoglycemia Heparin Sodium (Beef Lung) (Heparin Pf Lock 10 Units/Ml 50 Units/5 Ml Syringe) 50 units IV UD PRN PRN Reason: Port-a-Cath (VAD)Heparin Flush Heparin Sodium (Porcine) (Heparin Injection (Vial) 5,000 Unit/Ml Vial) 5,000 unit SC Q12 [facility] Last Admin: 03/25/20 08:31 Dose: 5,000 unit Documented by: Hydroxyzine Pamoate (Hydroxyzine Maritza 25 Mg Capsule) 25 mg PO TID PRN PRN PRN Reason: ANXIETY Sodium Chloride () 250 mls @ 15 mls/hr IV .[id number] PRN PRN Reason: Additional IVPB Infusion Last Infusion: 03/25/20 06:01 Dose: 0 mls/hr Documented by: Pantoprazole Sodium 40 mg/ (Sodium Chloride) 110 mls @ 330 mls/hr IV Q24 [facility] Last Admin: 03/25/20 08:20 Dose: 330 mls/hr Documented by: Dextrose/Sodium Chloride (Dextrose 5%/0.9% Nacl) 1,000 mls @ 125 mls/hr IV .Q8H [facility] Last Infusion: 03/25/20 06:05 Dose: 0 mls/hr Documented by: Piperacillin Sod/Tazobactam (Sod 3.375 gm/ Sodium Chloride) 50 mls @ 12.5 mls/hr IV Q8 [facility] Last Admin: 03/25/20 06:01 Dose: 12.5 mls/hr Documented by: Insulin Human Lispro (Insulin Lispro 100 Unit/Ml Insuln.Pen) 0 unit SC Q6 [facility]; Protocol Last Admin: 03/25/20 05:59 Dose: Not Given Documented by: Morphine Sulfate (Morphine 2 Mg/Ml Syringe) 2 mg IV Q3H PRN PRN PRN Reason: Pain Score 4-5 Last Admin: 03/24/20 22:33 Dose: 2 mg Documented by: Morphine Sulfate (Morphine 4 Mg/Ml Syringe) 4 mg IV Q3H PRN PRN PRN Reason: Pain Score 6-10 Last Admin: 03/25/20 06:06 Dose: 4 mg Documented by: Ondansetron HCl (Ondansetron 4 Mg/2 Ml Vial) 4 mg IV Q8H PRN PRN PRN Reason: NAUSEA/VOMITING Prochlorperazine Edisylate (Prochlorperazine 10 Mg/2 Ml Vial) 5 mg IV Q4H PRN PRN PRN Reason: Breakthrough nausea/vomiting Sodium Chloride (0.9% Saline Lock 10 Ml Syringe) 10 - 40 ml IV UD PRN PRN Reason: Port-a-Cath (VAD) Flush Last Admin: 03/25/20 06:06 Dose: 10 ml Documented by: Sodium Chloride (0.9 % Nacl (Sterile) Posiflush 10 Ml) 10 - 40 ml IV UD PRN PRN Reason: Port access or dressing change Sodium Chloride (0.9% Saline Lock 10 Ml Syringe) 10 - 40 ml IV UD PRN PRN Reason: SALINE FLUSH Zolpidem Tartrate (Zolpidem Tartrate 5 Mg Tablet) 5 mg PO QHS PRN PRN PRN Reason: INSOMNIA Medical Necessity - Tobacco Use Smoking Status: Never smoker Assessment/Plan All Active Problems (Last Updated 03/22/20 @ 14:[address] Júnior Felder, DO) SBO (small bowel obstruction) (Acute) STORMY (acute kidney injury) (Acute) Hydronephrosis (Acute) Impression: small bowel obstruction due to adhesions/radiation Plan: continue NG tube, IV hydration - may have to consider NICKY Dr. Wetzel is out of town. I spoke to hospitalist and I spoke to patient's daughter - options - transfer to higher level of care versus consultation to Palliative Medicine
[2020-03-25 11:25] LABS: Bedside Glucose 117 mg/dL (70-110)
--- NOTE | 2020-03-25 14:28 | DS.PCM_ITS ---
Discharge Date and Diagnosis - Problem List Patient Problems: Active and Suspected Problems (Last Updated 03/22/20 @ 14:[address] Júnior Felder DO) SBO (small bowel obstruction) (Acute) STORMY (acute kidney injury) (Acute) Hydronephrosis (Acute) Date of Admission: 03/22/20 Date of Discharge: 03/25/20 - Primary Discharge Diagnosis Acute Problems: Active Problems (Last Updated 03/22/20 @ 14:[address] Júnior Felder DO) SBO secondary to colorectal cancer with possible carcinomatosis and liver mets STORMY secondary to urinary retention and SBO Hydronephrosis secondary to urinary retention Type 2 diabetes - Secondary Discharge Diagnosis Chronic Problems: Chronic Problems (Last Updated 03/22/20 @ 14:[address] Júnior Felder DO) Vertigo (Chronic) High cholesterol (Chronic) Hypertension (Chronic) Diabetes (Chronic) Hospital Course and Treatment Imaging Results: IMAGING: CT/Abdomen/Pelvis without Cont IMPRESSION: Findings indicative of distal small bowel obstruction. The left kidney is engorged. There is evidence of perinephric stranding with mild to moderate degree of left hydronephrosis and hydroureter. No obstructive calculus is seen. Stable circumferential thickening of the rectum as well as increased presacral soft tissue densities. RAD/Chest 1 View (Portable) IMPRESSION: Mild increased markings at the right lung base with blunting of the right costophrenic angle suggestive of atelectasis. US/Kidney and Bladder IMPRESSION: Bilateral mild hydronephrosis. CT/Abdomen/Pel W ORAL Cont Only IMPRESSION: Findings compatible with a small bowel obstruction. The small bowel appears slightly more dilated than on the prior study. Bilateral hydronephrosis greater on the left with perinephric stranding and moderate left-sided hydronephrosis. There is bilateral hydroureter extending to the pelvis but not to the level of the bladder Anterior pararenal fluid and fat stranding is seen on the left similar to prior study Left lower quadrant colostomy Diverticulosis without evidence of diverticulitis Circumferential thickening of the rectum and presacral edema similar to prior study with presacral soft tissue density is again noted Increased bilateral pleural effusions right greater than left with right basilar consolidation NG tube in the stomach Central venous catheter tip at the cavoatrial junction. Distended gallbladder increased when compared to prior study but no stones or wall thickening Stable splenomegaly Individualized dose optimization techniques were used for this CT. RAD/Abdomen Single View (Portable) IMPRESSION: Gastric tube with tip in the fundus. RAD/Abd Inc Decub and/or Erect IMPRESSION: Markedly improved small bowel obstruction with a nasogastric tube. Consultations [facility] - gen surgery 03/24/20 09:59 Consult: Onc/Wound/olive grower Routine Comment: Operations: None Procedures: - - NG tube placement Summary of Care Provided: The patient is a 79 year old F with past medical history of colorectal cancer with liver mets pt of Dr. Wetzel, colostomy, who presented to the emergency room with abdominal pain over the past [address] scan in the emergency room demonstrated small bowel obstruction and left kidney hydronephrosis with perinephric stranding. The patient was admitted to the medical surgical floor for small bowel obstruction. General surgery was consulted. A CAT scan demonstrated worsening of the small bowel obstruction. An NG tube was placed and she did have some relief with this. Unfortunately over the next night she had no significant improvement. General surgery felt that she may be a surgical candidate however that this surgery could not be performed at this facility. [facility] surgery recommended transfer to a tertiary center. Also of note she had a renal ultrasound which demonstrated bilateral hydronephrosis. CT did not reveal any obstructing stones. She was unable to void and had residual in her bladder of 900 cc. Sigala catheter was placed. This is draining well. However her kidney function is not improving. She was discharged to [facility] in stable condition. [] Patient Problems: Active and Suspected Problems (Last Updated 03/22/20 @ 14:[address] Júnior Felder, DO) SBO (small bowel obstruction) (Acute) STORMY (acute kidney injury) (Acute) Hydronephrosis (Acute) - Physical Exam Vitals/I&O's: Vital Signs Temp Pulse Resp BP Pulse Ox 97.7 F L 75 18 133/65 H 100 03/25/20 08:25 03/25/20 12:00 03/25/20 08:25 03/25/20 08:25 03/25/20 08:25 Oxygen Flow Rate (L/min) 2 Oxygen Delivery Method Room Air Weight: 217 lb 9.54 oz Body Mass Index (BMI) 37.3 Intake and Output for Last 24 Hours 03/23/20 03/24/20 03/25/20 23:59 23:59 23:59 Intake Total 5111.66 / 5111.66 4497.91 / 4497.91 1762.08 / 1762.08 Output Total 4200 / 4200 1950 / 1950 750 / 750 Balance 911.66 / 911.66 2547.91 / 2547.91 1012.08 / 1012.08 General: Alert, Oriented x3, Cooperative HEENT: Atraumatic, PERRLA, EOMI, Normocephalic Neck: Supple, No JVD, Negative Carotid Bruits Lungs: Clear to auscultation, Normal air movement Cardiovascular: Regular rate, No murmurs Abdomen: Hypoactive Bowel Sounds, Distended, Tender Extremities: Capillary Refill Less than 3 Seconds, Edema - 1-2+ Skin: No rashes, No breakdown Musculoskeletal: No Tenderness to Palpation of Joints or Extremities Neurological: Cranial nerves II-XII grossly intact Psych/Mental Status: Normal Affect, Appropriate, Alert and oriented to time, place, person, mood and affect Microbiology Past 72 Hours 03/23/20 05:40 Urine, Clean Catch Urine Culture - Final Pseudomonas aeroginosa Laboratory Results 03/24/20 15:25: Troponin I < 0.015 03/24/20 17:14: POC Glucose 111 H 03/25/20 00:46: POC Glucose 129 H 03/25/20 05:58: POC Glucose 116 H 03/25/20 07:19: WBC 5.7, RBC 3.81 L, Hgb 10.6 L, Hct 35.4 L, MCV 92.9, MCH 27.8, MCHC 29.9 L, RDW Std Deviation 52.8 H, RDW Coeff of Halima 15.5 H, Plt Count 160, MPV 10.2, Immature Gran % (Auto) 1.600 H, Neut % (Auto) 75.2 H, Lymph % (Auto) 3.7 L, [place] % (Auto) 15.3 H, Eos % (Auto) 3.7, Baso % (Auto) 0.5, Absolute Neuts (auto) 4.3, Absolute Lymphs (auto) 0.21 L, Nucleated RBC % 0, Differential Comment COMMENT 03/25/20 07:19: Sodium 148 H, Potassium 4.7, Chloride 117 H, Carbon Dioxide 26.0, Anion Gap 5, BUN 38 H, Creatinine 2.55 H, Estim Creat Clear Calc 15.95, Est GFR (MDRD) Af Amer 23 L, Est GFR (MDRD) Non-Af 19 L, BUN/Creatinine Ratio 14.9, Glucose 140 H, Calcium 8.2 L, Total Bilirubin 1.20 H, AST 8 L, ALT 7 L, Alkaline Phosphatase 147 H, Total Protein 5.3 L, Albumin 1.9 L, Globulin 3.4, Albumin/Globulin Ratio 0.6 L 03/25/20 11:09: POC Glucose 117 H Current Medications Acetaminophen (Acetaminophen 650 Mg Suppository) 650 mg RECTAL Q4H PRN PRN PRN Reason: Pain Score 1-10/Temp > 100.7 F Dextrose (Dextrose 50%-Water 25 Gm/50 Ml Disp.Syrin) 0 gm IV X1 PRN; Protocol PRN Reason: Hypoglycemia Glucagon (Glucagon 1 Mg/Ml Syringe) 1 mg IM .X1 PRN PRN Reason: Hypoglycemia Heparin Sodium (Beef Lung) (Heparin Pf Lock 10 Units/Ml 50 Units/5 Ml Syringe) 50 units IV UD PRN PRN Reason: Port-a-Cath (VAD)Heparin Flush Heparin Sodium (Porcine) (Heparin Injection (Vial) 5,000 Unit/Ml Vial) 5,000 unit SC Q12 KEYONNA Last Admin: 03/25/20 08:31 Dose: 5,000 unit Documented by: Hydroxyzine Pamoate (Hydroxyzine Marit[place] 25 Mg Capsule) 25 mg PO TID PRN PRN PRN Reason: ANXIETY Sodium Chloride () 250 mls @ 15 mls/hr IV .[id number] PRN PRN Reason: Additional IVPB Infusion Last Infusion: 03/25/20 13:15 Dose: 0 mls/hr Documented by: Pantoprazole Sodium 40 mg/ (Sodium Chloride) 110 mls @ 330 mls/hr IV Q24 KEYONNA Last Infusion: 03/25/20 08:47 Dose: Infused Documented by: Dextrose/Sodium Chloride (Dextrose 5%/0.9% Nacl) 1,000 mls @ 125 mls/hr IV .Q8H KEYONNA Last Infusion: 03/25/20 08:48 Dose: 125 mls/hr Documented by: Piperacillin Sod/Tazobactam (Sod 3.375 gm/ Sodium Chloride) 50 mls @ 12.5 mls/hr IV Q8 [facility] Last Admin: 03/25/20 13:14 Dose: 12.5 mls/hr Documented by: Insulin Human Lispro (Insulin Lispro 100 Unit/Ml Insuln.Pen) 0 unit SC Q6 [facility]; Protocol Last Admin: 03/25/20 11:31 Dose: Not Given Documented by: Morphine Sulfate (Morphine 2 Mg/Ml Syringe) 2 mg IV Q3H PRN PRN PRN Reason: Pain Score 4-5 Last Admin: 03/24/20 22:33 Dose: 2 mg Documented by: Morphine Sulfate (Morphine 4 Mg/Ml Syringe) 4 mg IV Q3H PRN PRN PRN Reason: Pain Score 6-10 Last Admin: 03/25/20 12:31 Dose: 4 mg Documented by: Ondansetron HCl (Ondansetron 4 Mg/2 Ml Vial) 4 mg IV Q8H PRN PRN PRN Reason: NAUSEA/VOMITING Prochlorperazine Edisylate (Prochlorperazine 10 Mg/2 Ml Vial) 5 mg IV Q4H PRN PRN PRN Reason: Breakthrough nausea/vomiting Sodium Chloride (0.9% Saline Lock 10 Ml Syringe) 10 - 40 ml IV UD PRN PRN Reason: Port-a-Cath (VAD) Flush Last Admin: 03/25/20 12:31 Dose: 10 ml Documented by: Sodium Chloride (0.9 % Nacl (Sterile) Posiflush 10 Ml) 10 - 40 ml IV UD PRN PRN Reason: Port access or dressing change Sodium Chloride (0.9% Saline Lock 10 Ml Syringe) 10 - 40 ml IV UD PRN PRN Reason: SALINE FLUSH Zolpidem Tartrate (Zolpidem Tartrate 5 Mg Tablet) 5 mg PO QHS PRN PRN PRN Reason: INSOMNIA Discharge Diet: - - as directed by receiving facility Discharge Activity: - - as directed by receiving facility Home Medications: Medications to take at Discharge Alendronate Sodium [Fosamax] 70 mg PO FR 11/12/19 Allopurinol [Zyloprim] 100 mg PO DAILY 11/12/19 Lisinopril [Zestril] 20 mg PO DAILY 11/12/19 Meclizine HCl [Antivert] 12.5 mg PO BID PRN PRN 11/12/19 Rosuvastatin Calcium [Crestor] 5 mg PO DAILY 11/12/19 Ascorbic Acid [Vitamin C] 500 mg PO MOTH 02/12/20 Ferrous Gluconate [Iron] 65 mg PO MOTH 02/12/20 Hydrocodone Bitart/Apap 5-325 [[place] 5MG-325MG] 1 tab PO Q6H PRN PRN 02/12/20 Potassium Chloride [Klor-Con] 20 meq PO BID 02/12/20 Primary Care Physician: Steve Devries DO [Primary Care Provider] - Please follow up with your Primary Care Physician in: as directed by receiving facility Please Follow Up With: Juan Alberto Wetzel DO - oncology When: as needed Disposition: Acute care Hospital Minutes spent on discharge:: 35 Medical Necessity - Tobacco Use Smoking Status: Never smoker Meaningful Use Info Meaningful Use Diagnoses (Choose all that apply): None applicable
--- NOTE | 2020-03-25 14:38 | CHAPLAIN ---
Type of Pastoral Visit _x__ Initial Visit ___ Follow-up Visit ___ On-call Visit ___ General Patient Visit ___ Spiritual Assessment ___ Family Conference ___ Bereavement ___ Rapid Response ___ Code Blue ___ Other (describe below) Pastoral Care Referral From _x__ Patient ___ Family ___ Nurse ___ Physician ___ Camouflage Assembler ___ Production Zone Leader ___ Other (describe below) Sacrament/Intervention _x__ Active listening ___ Anointing ___ Latter-Day _x__ Bereavement ___ Communion _x__ Ines exploration ___ ___ Life review _x__ Prayer ___ Reconciliation ___ Sacrament of Sick _x__ Supportive presence ___ Wedding ___ Other (describe below) Pastoral Comments patient speaks of months long illness that has resulted in further complications; pt was very recently and unable to attend her 's ; pt has a [employer] connection but has not been active in a long time; pt welcomes presence and prayer support; pt does have family in the area;
--- NOTE | 2020-03-25 17:04 | NURSING ---
called report to Meryl at [facility] at this time. notified of warehouse order picker time of [id number].
[2020-03-25 17:55] LABS: Bedside Glucose 111 mg/dL (70-110)
== END 2020-03-25 20:25 | disposition short-term general hospital (02) | DRG 389 ==
LOC: ED 13:53 → MS3 14:04
PROVIDERS: Family Medicine; Physician Assistant; Emergency Provider Emergency Medicine; PCP Student in an Organized Health Care Education/Training Program; Visit Provider Internal Medicine
DX: K56.690 Other partial intestinal obstruction (principal); N17.9 Acute kidney failure, unspecified; N13.30 Unspecified hydronephrosis; C78.7 Secondary malignant neoplasm of liver and intrahepatic bile duct; C18.9 Malignant neoplasm of colon, unspecified; N39.0 Urinary tract infection, site not specified; D50.9 Iron deficiency anemia, unspecified; B96.5 Pseudomonas (aeruginosa) (mallei) (pseudomallei) as the cause of diseases classified elsewhere; E11.9 Type 2 diabetes mellitus without complications; E78.00 Pure hypercholesterolemia, unspecified; Z79.899 Other long term (current) drug therapy; I10 Essential (primary) hypertension; E66.9 Obesity, unspecified; Z68.38 Body mass index [BMI] 38.0-38.9, adult; Z90.49 Acquired absence of other specified parts of digestive tract; Z85.820 Personal history of malignant melanoma of skin; M10.9 Gout, unspecified; Z93.3 Colostomy status
CPT/HCPCS: 36415; 36591; 71045; 74018; 74019; 74176; 76770; 80048; 80053; 80076; 81001; 82962; 83690; 84484; 85025; 87077; 87086; 87088; 87186; 93005; 97161; 97802; 99285; J7030; J7050; A4216; J2405